=== PATIENT | female | born 1940 | race Caucasian/White ===

== ENCOUNTER 2016-10-31 07:16 | Emergency (ER) | payer MEDICARE ==
--- NOTE | 2016-10-31 07:57 | Emergency Department Report ---
Chief Complaint: Eye Problems Stated Complaint: LEFT EYE PAIN Time Seen by Provider: 10/31/16 07:45 - HPI History of Present Illness: Patient here complaining the left eye pain that she has had in the past. She has a history of high blood pressure and she said pain is 4-10 to her left eye and feeling like it's moving around. Denies any discharge or drainage. Denies any trauma to the left eye. She denies any headache but reports that her vision is blurred a time. She says she uses [id number] eyedrops which she is use in the past and it worked but it didn't work for her this time. Patient primary care physician is Dr. Malachi Pate. Patient blood pressure is also elevated. She says she is taking blood pressure medication. Denies any shortness of breath or chest pain. - ROS Review of Systems: All systems are negative unless stated in HPI above. - Exam Vital Signs: Vital Signs 10/31/16 07:21 Temperature 97.8 F Pulse Rate 87 Respiratory 16 Rate Blood Pressure 167/109 O2 Sat by Pulse 100 Oximetry Physical Exam: Gen.: This is 75-year-old female well-nourished well-developed in no acute distress Eyes: Bilateral pupils equal and reactive to light, bilateral EOM intact. Normal accommodation. Mini neurological exam: No facial drooping, speech is clear, GCS of 15. No motor or sensory deficit noted. MSE screening note: Focused history and physical exam performed. Due to findings the following was ordered: ED Medical Decision Making - Medical Decision Making MDM: Patient screened by provider and attending physician to see patient. ED Disposition for MSE Condition: Stable
[2016-10-31] MEDS ORDERED: FUL-GLO OP ONE (08:02)
[2016-10-31] MEDS ORDERED: TETRACAINE 0.5% OU ONE (08:02)
--- NOTE | 2016-10-31 08:33 | Emergency Department Report ---
HPI - General Chief Complaint: Eye Problems Time Seen by Provider: 10/31/16 07:49 - HPI HPI: This is a 75-year-old female presents to the emergency department with complaint of a six-week history of intermittent left eye discomfort, as if something is stuck in it but moving to different areas of that eye. Over this time she says that there has been some intermittent blurry vision or decreased vision. She does not wear glasses or contacts. She has a past medical history of hypertension and COPD. She used to see Dr. Garcia but says that he no longer takes her insurance and therefore she does not have a primary care physician and has not seen any physician, including an optics engineer, for these complaints. She has been using some [id number] eyedrops without any relief. ED Past Medical Hx - Past Medical History Previous Medical History?: Yes Hx Hypertension: Yes Additional medical history: cholesterol - Surgical History Past Surgical History?: No - Social History Smoking Status: Current Every Day Smoker Substance Use Type: None - Medications Home Medications: Home Medications Medication Instructions Recorded Confirmed Last Taken Type Tobramycin 0.3% [Tobrex] 1 drop OS Q8HR #1 bottle 10/31/16 Unknown Rx ED Review of Systems ROS: Stated complaint: LEFT EYE PAIN Other details as noted in HPI Comment: All other systems reviewed and negative Constitutional: denies: chills, fever Eyes: eye pain, vision change. denies: eye discharge ENT: denies: ear pain, throat pain Respiratory: denies: cough, shortness of breath, wheezing Cardiovascular: denies: chest pain, palpitations Gastrointestinal: denies: abdominal pain, nausea, diarrhea Genitourinary: denies: urgency, dysuria, discharge Musculoskeletal: denies: back pain, joint swelling, arthralgia Skin: denies: rash, lesions Neurological: denies: headache, weakness, paresthesias Physical Exam - Physical Exam Vital Signs: Vital Signs 10/31/16 07:21 Temperature 97.8 F Pulse Rate 87 Respiratory 16 Rate Blood Pressure 167/109 O2 Sat by Pulse 100 Oximetry Physical Exam: GENERAL: The patient is well-developed well-nourished. HENT: Normocephalic. Atraumatic. Patient has moist mucous membranes. EYES: Extraocular motions are intact. Pupils equal reactive to light bilaterally. There is mild left conjunctival injection. No obvious discharge. There was no fluorescein uptake seen on staining. No nystagmus. Left eye pressure was an average of 12. Visual acuity unable to be obtained secondary to the patient not having glasses. NECK: Supple. Trachea is midline. CHEST/LUNGS: Clear to auscultation. There is no respiratory distress noted. HEART/CARDIOVASCULAR: Regular. There is no tachycardia. There is no gallop rub or murmur. ABDOMEN: Abdomen is soft, nontender. Patient has normal bowel sounds. There is no abdominal distention. SKIN: Skin is warm and dry. NEURO: The patient is awake, alert, and oriented. The patient is cooperative. The patient has no focal neurologic deficits. The patient has normal speech and gait. MUSCULOSKELETAL: There is no tenderness or deformity. There is no limitation range of motion. There is no evidence of acute injury. ED Course Vital Signs 10/31/16 07:21 Temperature 97.8 F Pulse Rate 87 Respiratory 16 Rate Blood Pressure 167/109 O2 Sat by Pulse 100 Oximetry ED Medical Decision Making - Medical Decision Making 75-year-old presents with a 6 week history of left eye pain and occasionally some spots or blurry vision. Unable to check visual acuity secondary to the fact that she did not bring her glasses but it was the same with both eyes on her attempt. No fluorescein uptake. Pressure in the left eye was an average of 12. No obvious signs of infection but the patient will be placed on Tobrex. She'll be given referrals for ophthalmology seen in the next few days. She had elevated blood pressure but has yet to take her blood pressure medication today. - Differential Diagnosis conjunctivitis, corneal abrasion, glaucoma Critical Care Time: No Critical care attestation.: If time is entered above; I have spent that time in minutes in the direct care of this critically ill patient, excluding procedure time. ED Disposition Clinical Impression: Left eye pain Hypertension Qualifiers: Hypertension type: essential hypertension Qualified Code(s): I10 - Essential ( primary) hypertension Disposition: DC-01 TO HOME OR SELFCARE Is pt being admited?: No Condition: Stable Instructions: Hypertension (ED), Eye Pain (ED) Additional Instructions: Please follow up with an optics engineer in the next few days. Return to the emergency Department with any worsening of your symptoms or any acute distress. Please take your blood pressure medication. Try to stay away from foods that are high in salt and caffeinated products. Keep a blood pressure log. Prescriptions: Tobramycin 0.3% [Tobrex] 1 drop OS Q8HR #1 bottle Referrals: PRIMARY CARE, [Primary Care Provider] - 3-5 Days BÁRBARA MCNEIL MD [Staff Physician] - 3-5 Days SCOTT GOODWIN MD [Staff Physician] - 3-5 Days Time of Disposition: 09:57
[2016-10-31 09:24] VITALS: BP 178/91
== END 2016-10-31 10:08 | disposition home or self-care (01) ==
LOC: ED 07:16
DX: H57.12 Ocular pain, left eye (principal); I10 Essential (primary) hypertension; F17.200 Nicotine dependence, unspecified, uncomplicated
CPT/HCPCS: 99282

== ENCOUNTER 2018-09-02 17:49 | Emergency (ER) | payer MEDICARE ==
--- NOTE | 2018-09-02 18:07 | Event Note ---
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 This initial assessment/diagnostic orders/clinical plan/treatment(s) is/are subject to change based on patients health status, clinical progression and re- assessment by fellow clinical providers in the ED. Further treatment and workup at subsequent clinical providers discretion. Patient/guardian urged not to elope from the ED as their condition may be serious if not clinically assessed and managed. Initial orders include:
[2018-09-02 19:01] LABS: Basophils % (Auto) 0.8 % (0.0-1.8); Eosinophils # (Auto) 0.1 K/mm3 (0.0-0.4); Eosinophils % (Auto) 1.1 % (0.0-4.3); Hematocrit 40.8 % (30.3-42.9); Hemoglobin 14.1 gm/dl (10.1-14.3); Lymphocytes # (Auto) 2.3 K/mm3 (1.2-5.4); Lymphocytes % (Auto) 41.2 % (13.4-35.0); Mean Corpuscular HGB Conc 35 % (30-34); Mean Corpuscular Volume 98 fl (79-97); Monocytes # (Auto) 0.5 K/mm3 (0.0-0.8); Monocytes % (Auto) 8.6 % (0.0-7.3); Platelet Count 250 K/mm3 (140-440); Red Blood Count 4.18 M/mm3 (3.65-5.03); Red Cell Distribution Width 13.7 % (13.2-15.2)
[2018-09-02 19:25] LABS: Alanine Aminotransferase 7 units/L (7-56); Albumin 4.2 g/dL (3.9-5); BUN/Creatinine Ratio 12; Blood Urea Nitrogen 6 mg/dL (7-17); Calcium 9.2 mg/dL (8.4-10.2); Hemolysis Index 6
[2018-09-02 19:43] LABS: Bilirubin,Urine NEG (Negative); Blood,Urine SM (Negative); Color,Urine Yellow (Yellow); Mucus,Urine FEW /HPF; Protein,Urine <15 mg/dL mg/dL (Negative); Urobilinogen,Urine < 2.0 mg/dL (<2.0)
--- NOTE | 2018-09-02 20:00 | Emergency Department Report ---
ED General Adult HPI - General Chief complaint: Weakness Stated complaint: BLURRY VISION/WEAK Time Seen by Provider: 09/02/18 19:48 Source: patient, family Mode of arrival: Wheelchair Limitations: No Limitations - History of Present Illness Initial comments: Patient presents to the emergency department with a chief complaint of weakness, blurry vision, and dizziness that started earlier today. Patient also complains of not been up walking a straight line as well. Patient states that she has not taken blood pressure medications in over 3 years. Currently all symptoms have resolved. On arrival BP is approximately 180/108. Patient denies chest pain, abdominal pain, or headache -: Sudden Severity scale (0 -10): 0 Consistency: now resolved Improves with: none Worsens with: none Associated Symptoms: denies other symptoms Treatments Prior to Arrival: none - Related Data Previous Rx's Medication Instructions Recorded Last Taken Type Tobramycin 0.3% [Tobrex] 1 drop OS Q8HR #1 bottle 10/31/16 Unknown Rx Lisinopril [Zestril TAB] 10 mg PO QDAY #30 tablet 09/02/18 Unknown Rx Allergies Allergy/AdvReac Type Severity Reaction Status Date / Time acetaminophen [From Lortab] AdvReac Swelling Verified 09/02/18 18:03 hydrocodone bitartrate AdvReac Swelling Verified 09/02/18 18:03 [From Lortab] ED Review of Systems ROS: Stated complaint: BLURRY VISION/WEAK Other details as noted in HPI Comment: All other systems reviewed and negative Constitutional: denies: chills, fever Eyes: denies: eye pain, eye discharge, vision change ENT: denies: ear pain, throat pain Respiratory: denies: cough, shortness of breath, wheezing Cardiovascular: denies: chest pain, palpitations Endocrine: no symptoms reported Gastrointestinal: denies: abdominal pain, nausea, diarrhea Genitourinary: denies: urgency, dysuria, discharge Musculoskeletal: denies: back pain, joint swelling, arthralgia Skin: denies: rash, lesions Neurological: denies: headache, weakness, paresthesias Psychiatric: denies: anxiety, depression Hematological/Lymphatic: denies: easy bleeding, easy bruising ED Past Medical Hx - Past Medical History Hx Hypertension: Yes Additional medical history: cholesterol - Social History Smoking Status: Current Every Day Smoker Substance Use Type: None - Medications Home Medications: Home Medications Medication Instructions Recorded Confirmed Last Taken Type Tobramycin 0.3% [Tobrex] 1 drop OS Q8HR #1 bottle 10/31/16 Unknown Rx Lisinopril [Zestril TAB] 10 mg PO QDAY #30 tablet 09/02/18 Unknown Rx ED Physical Exam - General Limitations: No Limitations General appearance: alert, in no apparent distress - Head Head exam: Present: atraumatic, normocephalic - Eye Eye exam: Present: normal appearance, PERRL, EOMI - ENT ENT exam: Present: mucous membranes moist - Neck Neck exam: Present: normal inspection - Respiratory Respiratory exam: Present: normal lung sounds bilaterally. Absent: respiratory distress - Cardiovascular Cardiovascular Exam: Present: regular rate, normal rhythm. Absent: systolic murmur, diastolic murmur, rubs, gallop - GI/Abdominal GI/Abdominal exam: Present: soft, normal bowel sounds. Absent: distended, tenderness - Extremities Exam Extremities exam: Present: normal inspection - Back Exam Back exam: Present: normal inspection - Neurological Exam Neurological exam: Present: alert, oriented X3, CN II-XII intact. Absent: motor sensory deficit - Psychiatric Psychiatric exam: Present: normal affect, normal mood - Skin Skin exam: Present: warm, dry, intact, normal color. Absent: rash ED Course Vital Signs 09/02/18 09/02/18 09/02/18 18:01 20:16 21:33 Temperature 97.8 F 97.8 F Pulse Rate 92 H 78 85 Respiratory 16 20 Rate Blood Pressure 180/108 180/98 Blood Pressure 167/90 [Left] O2 Sat by Pulse 94 95 Oximetry ED Medical Decision Making - Lab Data Result diagrams: 09/02/18 18:08 09/02/18 18:08 Lab Results 09/02/18 09/02/18 09/02/18 Range/Units 18:08 18:08 19:14 WBC 5.7 (4.5-11.0) K/mm3 RBC 4.18 (3.65-5.03) M/mm3 Hgb 14.1 (10.1-14.3) gm/dl Hct 40.8 (30.3-42.9) % MCV 98 H (79-97) fl MCH 34 H (28-32) pg MCHC 35 H (30-34) % RDW 13.7 (13.2-15.2) % Plt Count 250 (140-440) K/mm3 Lymph % (Auto) 41.2 H (13.4-35.0) % [place] % (Auto) 8.6 H (0.0-7.3) % Eos % (Auto) 1.1 (0.0-4.3) % Baso % (Auto) 0.8 (0.0-1.8) % Lymph # 2.3 (1.2-5.4) K/mm3 [place] # 0.5 (0.0-0.8) K/mm3 Eos # 0.1 (0.0-0.4) K/mm3 Baso # 0.0 (0.0-0.1) K/mm3 Seg Neutrophils % 48.3 (40.0-70.0) % Seg Neutrophils # 2.8 (1.8-7.7) K/mm3 PT (12.2-14.9) Sec. INR (0.87-1.13) APTT (24.2-36.6) Sec. Sodium 138 (137-145) mmol/L Potassium 3.5 L (3.6-5.0) mmol/L Chloride 103.7 (98-107) mmol/L Carbon Dioxide 22 (22-30) mmol/L Anion Gap 16 mmol/L BUN 6 L (7-17) mg/dL Creatinine 0.5 L (0.7-1.2) mg/dL Estimated GFR > 60 ml/min BUN/Creatinine Ratio 12 % Glucose 88 (65-100) mg/dL Calcium 9.2 (8.4-10.2) mg/dL Total Bilirubin 0.50 (0.1-1.2) mg/dL AST 14 (5-40) units/L ALT 7 (7-56) units/L Alkaline Phosphatase 81 (35-129) units/L Troponin T (0.00-0.029) ng/mL Total Protein 6.9 (6.3-8.2) g/dL Albumin 4.2 (3.9-5) g/dL Albumin/Globulin Ratio 1.6 % Urine Color Yellow (Yellow) Urine Turbidity Clear (Clear) Urine pH 7.0 (5.0-7.0) Ur Specific [place] 1.009 (1.003-1.030) Urine Protein <15 mg/dl (Negative) mg/dL Urine Glucose (UA) Neg (Negative) mg/dL Urine Ketones Neg (Negative) mg/dL Urine Blood Sm (Negative) Urine Nitrite Neg (Negative) Urine Bilirubin Neg (Negative) Urine Urobilinogen < 2.0 (<2.0) mg/dL Ur Leukocyte Esterase Neg (Negative) Urine WBC (Auto) 1.0 (0.0-6.0) /HPF Urine RBC (Auto) 1.0 (0.0-6.0) /HPF Urine Mucus Few /HPF 09/02/18 09/02/18 Range/Units 19:52 19:52 WBC (4.5-11.0) K/mm3 RBC (3.65-5.03) M/mm3 Hgb (10.1-14.3) gm/dl Hct (30.3-42.9) % MCV (79-97) fl MCH (28-32) pg MCHC (30-34) % RDW (13.2-15.2) % Plt Count (140-440) K/mm3 Lymph % (Auto) (13.4-35.0) % [place] % (Auto) (0.0-7.3) % Eos % (Auto) (0.0-4.3) % Baso % (Auto) (0.0-1.8) % Lymph # (1.2-5.4) K/mm3 [place] # (0.0-0.8) K/mm3 Eos # (0.0-0.4) K/mm3 Baso # (0.0-0.1) K/mm3 Seg Neutrophils % (40.0-70.0) % Seg Neutrophils # (1.8-7.7) K/mm3 PT 13.4 (12.2-14.9) Sec. INR 1.05 (0.87-1.13) APTT 24.5 (24.2-36.6) Sec. Sodium (137-145) mmol/L Potassium (3.6-5.0) mmol/L Chloride (98-107) mmol/L Carbon Dioxide (22-30) mmol/L Anion Gap mmol/L BUN (7-17) mg/dL Creatinine (0.7-1.2) mg/dL Estimated GFR ml/min BUN/Creatinine Ratio % Glucose (65-100) mg/dL Calcium (8.4-10.2) mg/dL Total Bilirubin (0.1-1.2) mg/dL AST (5-40) units/L ALT (7-56) units/L Alkaline Phosphatase (35-129) units/L Troponin T < 0.010 (0.00-0.029) ng/mL Total Protein (6.3-8.2) g/dL Albumin (3.9-5) g/dL Albumin/Globulin Ratio % Urine Color (Yellow) Urine Turbidity (Clear) Urine pH (5.0-7.0) Ur Specific [place] (1.003-1.030) Urine Protein (Negative) mg/dL Urine Glucose (UA) (Negative) mg/dL Urine Ketones (Negative) mg/dL Urine Blood (Negative) Urine Nitrite (Negative) Urine Bilirubin (Negative) Urine Urobilinogen (<2.0) mg/dL Ur Leukocyte Esterase (Negative) Urine WBC (Auto) (0.0-6.0) /HPF Urine RBC (Auto) (0.0-6.0) /HPF Urine Mucus /HPF - EKG Data -: EKG Interpreted by Ga EKG shows normal: sinus rhythm Rate: normal - Radiology Data Radiology results: report reviewed - Medical Decision Making Discussed results with the patient Patient offered admission and politely declined stating her symptoms are likely due to hypertension Critical care attestation.: If time is entered above; I have spent that time in minutes in the direct care of this critically ill patient, excluding procedure time. ED Disposition Clinical Impression: Hypertension, Dizziness, nonspecific Disposition: DC-01 TO HOME OR SELFCARE Is pt being admited?: No Does the pt Need Aspirin: No Condition: Stable Instructions: Hypertension (ED), Dizziness (ED) Additional Instructions: return if worse Prescriptions: Lisinopril [Zestril TAB] 10 mg PO QDAY #30 tablet Referrals: PRIMARY CARE, [Primary Care Provider] - 3-5 Days [facility] [Provider Group] - 3-5 Days [facility] [Provider Group] - 3-5 Days [facility] [Outside] - 3-5 Days Time of Disposition: 21:52 - Assessment Assessment Interval: Baseline - Level of Consciousness 1a. Level of Consciousness: alert/keenly responsive - LOC Questions 1b. LOC Questions: answers both correctly - LOC Command 1c. LOC Commands: performs tasks correctly - Best Gaze 2. Best Gaze: normal - Visual 3. Visual: no visual loss - Facial Palsy 4. Facial Palsy: normal symmetrical movement - Motor Arm 5a. Motor Arm Left: no drift 5b. Motor Arm Right: no drift - Motor Leg 6a. Motor Leg Left: no drift 6b. Motor Leg Right: no drift - Limb Ataxia 7. Limb Ataxia: absent - Sensory 8. Sensory: normal - Best Language 9. Best Language: no aphasia - Dysarthria 10. Dysarthria: normal - Extinction and Inattention 11. Extinction/Inattention: no abnormality - Scoring Total Score: 0 Stroke Severity: No Stroke Symptoms
[2018-09-02 20:27] LABS: INR 1.05 (0.87-1.13)
[2018-09-02 20:28] LABS: Partial Thromboplastin Time 24.5 Sec. (24.2-36.6)
--- NOTE | 2018-09-02 20:54 | Cat Scan Report ---
CT head/brain wo con INDICATION: MAIN: DIZZINESS, HTN.. TECHNIQUE: Routine CT head without contrast. Sagittal and coronal reformatted images were obtained. A ll CT scans at this location are performed using CT dose reduction for ALARA by means of automated ex posure control. COMPARISON: None. FINDINGS: BRAIN / INTRACRANIAL CONTENTS: No acute hemorrhage, mass effect, midline shift, hydrocephalus, or acu te, large territorial infarct. Generalized cerebral atrophy is seen to a moderate degree. Hippocampi are normal. Cerebellar hemispheres are normal. No significant white matter abnormality. Bilateral parietal thinning is seen. Prominent scalp seen on the right side adjacent parietal thinnin g. CRANIOCERVICAL JUNCTION: No significant abnormality. ORBITS: No significant abnormality of visualized orbits. SINUSES / MASTOIDS: No significant abnormality of the visualized paranasal sinuses or mastoid air alissa ls. Soft tissue thickening is seen in the superior meati bilaterally. ADDITIONAL FINDINGS: None. IMPRESSION: I do not see an acute parenchymal lesion in the brain. Signer Name: Patrice Nagy MD Signed: 09/02/2018 8:50 PM Workstation Name: [id number]
[2018-09-02] MEDS ORDERED: NORVASC PO ONE (21:11)
[2018-09-02 23:08] VITALS: BP 167/82
== END 2018-09-02 23:08 | disposition home or self-care (01) ==
LOC: ED 17:49
DX: R42 Dizziness and giddiness (principal); I10 Essential (primary) hypertension; F17.200 Nicotine dependence, unspecified, uncomplicated; Z79.899 Other long term (current) drug therapy; Z88.8 Allergy status to other drugs, medicaments and biological substances
CPT/HCPCS: 36415; 70450; 80053; 81001; 84484; 85025; 85610; 85730; 93005; 93010; 99284

== ENCOUNTER 2018-09-04 12:39 | Observation (INO) | payer MEDICARE ==
[2018-09-04] MEDS ORDERED: NACL 0.9% 250ML 250 ML IV ONE (14:20)
[2018-09-04] MEDS ORDERED: ANTIVERT PO ONE (14:20)
--- NOTE | 2018-09-04 14:22 | Emergency Department Report ---
ED General Adult HPI - General Chief complaint: Dizziness Stated complaint: FAINT FEELING Time Seen by Provider: 09/04/18 14:02 Source: patient, family, RN notes reviewed, old records reviewed Mode of arrival: Stretcher Limitations: Other (patient deaf and heart of hearing in the left ear) - History of Present Illness Initial comments: This is a 77-year-old female. The patient is not known to this provider previously. The patient reports a history of being deaf in the left ear, and also describes a history of COPD. She is not sure who her primary care doctor is. She may also have a history of hypertension. Patient presents today with a recurrent complaint of feeling dizzy, and intermittently off balance. She was seen in this hospital a few days ago for similar symptoms. She had an appropriate initial ER workup, admission was recommended, which the patient subsequently declined. The patient presents today, with a recurrent complaint o f the same. It is now resolved. The patient denies headache, neck pain, chest pain, abdominal pain and shortness of breath. She denies tinnitus. 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 She denies physical pain otherwise. She denies DVT, pulmonary embolism risk factors. She is not sure if she has started any new medications, with the exception of the medications which were prescribed for her on her previous visit. -: Sudden Consistency: intermittent Improves with: none Worsens with: none Associated Symptoms: denies other symptoms - Related Data Previous Rx's Medication Instructions Recorded Last Taken Type Aspirin [Aspirin BABY CHEW TAB] 81 mg PO QDAY #30 tab.chew 09/02/18 09/04/18 Rx Lisinopril [Zestril TAB] 10 mg PO QDAY #30 tablet 09/02/18 09/04/18 Rx Allergies Allergy/AdvReac Type Severity Reaction Status Date / Time acetaminophen [From Lortab] AdvReac Swelling Verified 09/02/18 18:03 hydrocodone bitartrate AdvReac Swelling Verified 09/02/18 18:03 [From Lortab] ED Review of Systems ROS: Stated complaint: FAINT FEELING Other details as noted in HPI Constitutional: denies: fever Eyes: denies: eye discharge ENT: hearing loss (chronic hearing loss). denies: ear pain Respiratory: denies: shortness of breath Cardiovascular: denies: chest pain, syncope Gastrointestinal: denies: abdominal pain Genitourinary: denies: dysuria Skin: denies: lesions Neurological: abnormal gait, vertigo. denies: weakness Hematological/Lymphatic: denies: easy bleeding ED Past Medical Hx - Past Medical History Previous Medical History?: Yes Hx Hypertension: Yes Hx COPD: Yes Additional medical history: cholesterol - Surgical History Past Surgical History?: No - Social History Smoking Status: Current Every Day Smoker Substance Use Type: None - Medications Home Medications: Home Medications Medication Instructions Recorded Confirmed Last Taken Type Aspirin [Aspirin BABY CHEW TAB] 81 mg PO QDAY #30 tab.chew 09/02/18 09/04/18 09/04/18 Rx Lisinopril [Zestril TAB] 10 mg PO QDAY #30 tablet 09/02/18 09/04/18 09/04/18 Rx ED Physical Exam - General Limitations: No Limitations General appearance: alert, in no apparent distress - Head Head exam: Present: atraumatic, normocephalic - Eye Eye exam: Present: normal appearance, PERRL, EOMI, other (visual acuity intact to finger counting, color perception, reading at a close distance). Absent: nystagmus - ENT ENT exam: Present: normal exam, normal orophraynx, mucous membranes moist, TM's normal bilaterally, normal external ear exam - Neck Neck exam: Present: normal inspection, full ROM. Absent: tenderness, meningismus - Respiratory Respiratory exam: Present: normal lung sounds bilaterally. Absent: respiratory distress - Cardiovascular Cardiovascular Exam: Present: regular rate, normal rhythm, normal heart sounds. Absent: bradycardia, tachycardia, irregular rhythm, systolic murmur, diastolic murmur, rubs, gallop - GI/Abdominal GI/Abdominal exam: Present: soft. Absent: distended, tenderness, guarding, rebound, rigid, pulsatile mass - Extremities Exam Extremities exam: Present: normal inspection, full ROM, pedal edema, other (2+ pulses noted in the bilateral upper, lower extremities. Compartments soft. No long bony tenderness. The pelvis is stable.). Absent: calf tenderness - Back Exam Back exam: Present: normal inspection, full ROM. Absent: tenderness, CVA tenderness (R), CVA tenderness (L), paraspinal tenderness, vertebral tenderness - Neurological Exam Neurological exam: Present: alert, normal gait, other (Extraocular movements intact. Tongue midline. No facial droop. Facial sensation intact to light touch in the V1, V2, V3 distribution bilaterally. 5 and 5 strength in 4 extremities.. Sensation is intact to light touch in 4 extremities.). Absent: motor sensory deficit - Psychiatric Psychiatric exam: Present: normal affect, normal mood - Skin Skin exam: Present: warm, dry, intact, normal color. Absent: rash ED Course Vital Signs 09/04/18 09/04/18 09/04/18 13:30 13:34 13:45 Temperature 97.8 F Pulse Rate 73 Respiratory 14 11 L 13 Rate Blood Pressure 143/66 134/59 Blood Pressure [Left] O2 Sat by Pulse 98 97 Oximetry 09/04/18 09/04/18 09/04/18 14:00 14:15 14:30 Temperature Pulse Rate Respiratory 15 14 11 L Rate Blood Pressure 134/59 138/76 138/76 Blood Pressure [Left] O2 Sat by Pulse 96 97 Oximetry 09/04/18 09/04/18 09/04/18 14:58 15:00 15:13 Temperature Pulse Rate 74 Respiratory 11 L 17 21 Rate Blood Pressure 138/74 138/74 Blood Pressure 136/67 [Left] O2 Sat by Pulse 97 97 97 Oximetry 09/04/18 09/04/18 09/04/18 15:15 15:31 15:45 Temperature Pulse Rate Respiratory 17 16 18 Rate Blood Pressure 142/77 138/79 Blood Pressure [Left] O2 Sat by Pulse 97 96 96 Oximetry 09/04/18 09/04/18 09/04/18 16:00 16:15 16:31 Temperature Pulse Rate 85 88 Respiratory 18 17 15 Rate Blood Pressure 124/79 Blood Pressure [Left] O2 Sat by Pulse 97 96 96 Oximetry - Consultations Consultation #1: 09/04/18 17:24 Patient seen and examined by neurology, Dr. Rodriguez, who agrees with plan for admission, and workup/evaluation, agrees that patient is not a TPA candidate, and agrees that no emergent angiographic imaging is indicated at this point in time. 09/04/18 17:26 ED Medical Decision Making - Lab Data Result diagrams: 09/04/18 14:28 09/04/18 14:28 Vital Signs 09/04/18 09/04/18 09/04/18 13:30 13:34 13:45 Temperature 97.8 F Pulse Rate 73 Respiratory 14 11 L 13 Rate Blood Pressure 143/66 134/59 Blood Pressure [Left] O2 Sat by Pulse 98 97 Oximetry 09/04/18 09/04/18 09/04/18 14:00 14:15 14:30 Temperature Pulse Rate Respiratory 15 14 11 L Rate Blood Pressure 134/59 138/76 138/76 Blood Pressure [Left] O2 Sat by Pulse 96 97 Oximetry 09/04/18 09/04/18 09/04/18 14:58 15:00 15:13 Temperature Pulse Rate 74 Respiratory 11 L 17 21 Rate Blood Pressure 138/74 138/74 Blood Pressure 136/67 [Left] O2 Sat by Pulse 97 97 97 Oximetry 09/04/18 09/04/18 09/04/18 15:15 15:31 15:45 Temperature Pulse Rate Respiratory 17 16 18 Rate Blood Pressure 142/77 138/79 Blood Pressure [Left] O2 Sat by Pulse 97 96 96 Oximetry 09/04/18 09/04/18 09/04/18 16:00 16:15 16:31 Temperature Pulse Rate 85 88 Respiratory 18 17 15 Rate Blood Pressure 124/79 Blood Pressure [Left] O2 Sat by Pulse 97 96 96 Oximetry Lab Results 09/04/18 09/04/18 09/04/18 Range/Units 14:28 14:28 14:28 WBC 7.5 (4.5-11.0) K/mm3 RBC 4.14 (3.65-5.03) M/mm3 Hgb 14.2 (10.1-14.3) gm/dl Hct 40.9 (30.3-42.9) % MCV 99 H (79-97) fl MCH 34 H (28-32) pg MCHC 35 H (30-34) % RDW 13.8 (13.2-15.2) % Plt Count 254 (140-440) K/mm3 Lymph % (Auto) 15.0 (13.4-35.0) % [place] % (Auto) 5.0 (0.0-7.3) % Eos % (Auto) 0.2 (0.0-4.3) % Baso % (Auto) 0.6 (0.0-1.8) % Lymph # 1.1 L (1.2-5.4) K/mm3 [place] # 0.4 (0.0-0.8) K/mm3 Eos # 0.0 (0.0-0.4) K/mm3 Baso # 0.0 (0.0-0.1) K/mm3 Seg Neutrophils % 79.2 H (40.0-70.0) % Seg Neutrophils # 5.9 (1.8-7.7) K/mm3 PT 13.1 (12.2-14.9) Sec. INR 1.02 (0.87-1.13) APTT 26.8 (24.2-36.6) Sec. Thrombin Time 16.2 (15.1-19.6) Sec. Sodium (137-145) mmol/L Potassium (3.6-5.0) mmol/L Chloride (98-107) mmol/L Carbon Dioxide (22-30) mmol/L Anion Gap mmol/L BUN (7-17) mg/dL Creatinine (0.7-1.2) mg/dL Estimated GFR ml/min BUN/Creatinine Ratio % Glucose (65-100) mg/dL Calcium (8.4-10.2) mg/dL Magnesium (1.7-2.3) mg/dL Total Bilirubin (0.1-1.2) mg/dL AST (5-40) units/L ALT (7-56) units/L Alkaline Phosphatase (35-129) units/L Total Creatine Kinase (30-135) units/L CK-MB (CK-2) (0.0-4.0) ng/mL CK-MB (CK-2) Rel Index (0-4) Troponin T (0.00-0.029) ng/mL Total Protein (6.3-8.2) g/dL Albumin (3.9-5) g/dL Albumin/Globulin Ratio % TSH 2.100 (0.270-4.200) mlU/mL 09/04/18 Range/Units 14:28 WBC (4.5-11.0) K/mm3 RBC (3.65-5.03) M/mm3 Hgb (10.1-14.3) gm/dl Hct (30.3-42.9) % MCV (79-97) fl MCH (28-32) pg MCHC (30-34) % RDW (13.2-15.2) % Plt Count (140-440) K/mm3 Lymph % (Auto) (13.4-35.0) % [place] % (Auto) (0.0-7.3) % Eos % (Auto) (0.0-4.3) % Baso % (Auto) (0.0-1.8) % Lymph # (1.2-5.4) K/mm3 [place] # (0.0-0.8) K/mm3 Eos # (0.0-0.4) K/mm3 Baso # (0.0-0.1) K/mm3 Seg Neutrophils % (40.0-70.0) % Seg Neutrophils # (1.8-7.7) K/mm3 PT (12.2-14.9) Sec. INR (0.87-1.13) APTT (24.2-36.6) Sec. Thrombin Time (15.1-19.6) Sec. Sodium 135 L (137-145) mmol/L Potassium 3.7 (3.6-5.0) mmol/L Chloride 101.4 (98-107) mmol/L Carbon Dioxide 23 (22-30) mmol/L Anion Gap 14 mmol/L BUN 8 (7-17) mg/dL Creatinine 0.5 L (0.7-1.2) mg/dL Estimated GFR > 60 ml/min BUN/Creatinine Ratio 16 % Glucose 102 H (65-100) mg/dL Calcium 9.1 (8.4-10.2) mg/dL Magnesium 2.10 (1.7-2.3) mg/dL Total Bilirubin 0.40 (0.1-1.2) mg/dL AST 14 (5-40) units/L ALT 8 (7-56) units/L Alkaline Phosphatase 81 (35-129) units/L Total Creatine Kinase 50 (30-135) units/L CK-MB (CK-2) 1.4 (0.0-4.0) ng/mL CK-MB (CK-2) Rel Index 2.8 (0-4) Troponin T < 0.010 (0.00-0.029) ng/mL Total Protein 7.1 (6.3-8.2) g/dL Albumin 4.2 (3.9-5) g/dL Albumin/Globulin Ratio 1.4 % TSH (0.270-4.200) mlU/mL - EKG Data -: EKG Interpreted by Mt EKG shows normal: sinus rhythm Rate: normal - EKG Data 09/04/18 17:02 EKG today demonstrates a sinus rhythm, 67 bpm, QTC prolonged, low voltage, borderline left ventricular hypertrophy, abnormal EKG, not consistent with ST elevation myocardial infarction, appears unchanged from prior EKG from August 2018. - Radiology Data Radiology results: pending, report reviewed, image reviewed Noncontrast CT scan of the brain today is negative for acute disease. Noncontrast CT scan of the brain from 09/02/2018 as negative for acute disease. - Medical Decision Making Differential diagnosis, including not limited to: Peripheral vertigo, central vertigo, deconditioning, dehydration, urinary tract infection, electrolyte d erangement, thyroid derangement Assessment and plan: 77-year-old female with a complaint of feeling dizzy and intermittently off balance without additional symptoms. She is afebrile with reassuring vital signs. She is not tachycardic and she is not hypoxic. She endorses no DVT or pulmonary embolus risk factors. Her screening laboratory studies are essentially unremarkable. Urinalysis is pending at this time. Noncontrast CT scan of the brain is negative for acute disease. Neurology consu lt has been requested. Patient has an NIH score of 0 at this time, therefore not a TPA candidate. Given her lack of neurologic deficits at the moment, she does not require emergent angiographic imaging, as her current exam does not corroborate or substantiate a potential large vessel occlusion. We will treat her empirically with aspirin, fluids and meclizine. Hospital physician, Dr. Ella Mijares to admit I discussed this with the patient and family, who verbalized understanding, and who are amenable to hospitalization. Critical care attestation.: If time is entered above; I have spent that time in minutes in the direct care of this critically ill patient, excluding procedure time. ED Disposition Clinical Impression: Dizziness, nonspecific, History of unsteady gait Disposition: -09 OP ADMIT IP TO THIS HOSP Is pt being admited?: Yes Does the pt Need Aspirin: Yes Condition: Stable Referrals: EWA SCHMITZ MD [Primary Care Provider] - 3-5 Days
[2018-09-04 14:46] LABS: Basophils % (Auto) 0.6 % (0.0-1.8); Eosinophils % (Auto) 0.2 % (0.0-4.3); Hematocrit 40.9 % (30.3-42.9); Hemoglobin 14.2 gm/dl (10.1-14.3); Lymphocytes # (Auto) 1.1 K/mm3 (1.2-5.4); Mean Corpuscular HGB Conc 35 % (30-34); Mean Corpuscular Volume 99 fl (79-97); Monocytes # (Auto) 0.4 K/mm3 (0.0-0.8); Platelet Count 254 K/mm3 (140-440); Red Blood Count 4.14 M/mm3 (3.65-5.03); Red Cell Distribution Width 13.8 % (13.2-15.2)
[2018-09-04 14:55] LABS: INR 1.02 (0.87-1.13)
[2018-09-04 14:56] LABS: Partial Thromboplastin Time 26.8 Sec. (24.2-36.6); Thrombin Time 16.2 Sec. (15.1-19.6)
[2018-09-04 15:05] LABS: Creatine Kinase MB 1.4 ng/mL (0.0-4.0)
[2018-09-04 15:06] LABS: Alanine Aminotransferase 8 units/L (7-56); Albumin 4.2 g/dL (3.9-5); BUN/Creatinine Ratio 16; Blood Urea Nitrogen 8 mg/dL (7-17); Calcium 9.1 mg/dL (8.4-10.2); Hemolysis Index 19
--- NOTE | 2018-09-04 16:47 | Cat Scan Report ---
CT head/brain wo con INDICATION / CLINICAL INFORMATION: 77 years Female; Stroke symptoms. 77-year-old female with dizziness TECHNIQUE: Routine CT head without contrast. All CT scans at this location are performed using CT dos e reduction for ALARA by means of automated exposure control. COMPARISON: None. FINDINGS: BRAIN / INTRACRANIAL CONTENTS: No acute hemorrhage, mass effect, midline shift, hydrocephalus, or acu te, large territorial infarct. cerebral and cerebellar atrophy. There are areas of decreased attenuation in the white matter of the cerebral hemispheres. These are n onspecific findings and may be related to microangiopathy (hypertension, diabetes, atherosclerosis), given the patient's age. It might be difficult to evaluate for small areas of ischemia without diffus ion imaging by MRI. CRANIOCERVICAL JUNCTION: No significant abnormality. ORBITS: No significant abnormality of visualized orbits. SINUSES / MASTOIDS: No significant abnormality of the visualized paranasal sinuses or mastoid air alissa ls. ADDITIONAL FINDINGS: Biparietal thinning of the calvarium noted-normal variant. Atherosclerotic disease is seen in the anterior and posterior circulation. IMPRESSION: 1. No focal mass, hemorrhage, hydrocephalus, or acute, large territorial infarct. Signer Name: Jamie Leong MD, III Signed: 09/04/2018 4:43 PM Workstation Name: [id number]
[2018-09-04] MEDS ORDERED: BABY ASPIRIN PO ONE (17:06)
[2018-09-04] MEDS ORDERED: NACL 0.9% 500 ML 500 ML IV ONE (17:07)
--- NOTE | 2018-09-04 21:17 | Consultation ---
History of Present Illness Consult date: 09/04/18 Chief complaint: dizziness, flushing History of present illness: [facility] Impression: r/o stroke vs medication effect Recommendations: no tpa due to LKN not an lvo aspirin now MRI brain to r/o stroke MRA H/N to r/o focal stenosis neurology consultation to follow inpatient d/w ED doc in detail Irena Rodriguez MD Metrics: 09/04/18 LKN 0900hrs (possibly Tuesday) door: 1421 ts called 1651 ts connected 1710 NIHSS 1710 CC: dizziness History of Present Illness: 77 yo female who states she is here due to feeling lightheaded and flushed after her medication dose this morning, started 30 min after taking her BP med; but she also notes she has unsteadiness of gait with walking that was maybe since Tuesday; she came in on Tuesday for eval as well and had head CT, her BP at that time was in the 180's; She is a bit of a poor historian; no focal findings on exam; but staff state that this fluctuates Diagnostic Testing: CT head negative Vital Signs: SBP 110 NIHSS = 1 for slurred speech; otherwise negative exam Medical Decision Making: - Extensive number of diagnosis or management options are considered above. - Extensive amount of complex data reviewed. - High risk of complication and/or morbidity or mortality are associated with differential diagnostic considerations above. - There may be uncertain outcome and increased probability of prolonged functional impairment or high probability of severe prolonged functional impairment associated with some of these differential diagnosis. Medical Data Reviewed: 1.Data reviewed include clinical labs, radiology, Medical Tests; 2.Tests results discussed w/performing or interpreting physician; 3.Obtaining/reviewing old medical records; 4.Obtaining case history from another source; 5.Independent review of image, tracing or specimen. Patient was informed the [facility] would [facility] of interactive audio and video telecommunicationsand consented to receiving care in this manner. Medications and Allergies Allergies Allergy/AdvReac Type Severity Reaction Status Date / Time acetaminophen [From Lortab] AdvReac Swelling Verified 09/02/18 18:03 hydrocodone bitartrate AdvReac Swelling Verified 09/02/18 18:03 [From Lortab] Home Medications Medication Instructions Recorded Confirmed Last Taken Type Aspirin [Aspirin BABY CHEW TAB] 81 mg PO QDAY #30 tab.chew 09/02/18 09/04/18 09/04/18 Rx Lisinopril [Zestril TAB] 10 mg PO QDAY #30 tablet 09/02/18 09/04/18 09/04/18 Rx Physical Examination - Vital Signs Vital Signs: Vital Signs Temp Pulse Resp BP Pulse Ox 97.8 F 73 11 L 143/66 98 09/04/18 13:30 09/04/18 13:30 09/04/18 13:30 09/04/18 13:30 09/04/18 13:30 Results - Laboratory Findings CBC and BMP: 09/04/18 14:28 09/04/18 14:28 Abnormal Lab Findings: Abnormal Labs 09/04/18 09/04/18 14:28 14:28 MCV 99 H MCH 34 H MCHC 35 H Lymph # 1.1 L Seg Neutrophils % 79.2 H Sodium 135 L Creatinine 0.5 L Glucose 102 H
--- NOTE | 2018-09-05 00:37 | History and Physical Report ---
History of Present Illness Date of examination: 09/04/18 Date of admission: 09/04/18 17:06 Chief complaint: Unsteady gait for 2 days. History of present illness: 77-year-old female with history of hypertension COPD and nicotine dependence comes in for unsteady gait for the last 48 hours. Patient was in emergency room couple days ago and was evaluated and discharged. Patient had adequate evaluation. Patient continued to be having unsteady gait. Also her blood pressure was elevated. No diplopia or nasal regurgitation of fluids. No focal weakness. No slurred speech. Only unsteady gait. Past Medical History Previous Medical History?: Yes Hypertension: Yes COPD: Yes Additional medical history: cholesterol Surgical History Past Surgical History?: No Social History and Smoking Status: Current Every Day Smoker Substance Use Type: None Family history HTN - Medications Home Medications: Home Medications Medication Instructions Recorded Confirmed Last Taken Type Aspirin [Aspirin BABY CHEW TAB] 81 mg PO QDAY #30 tab.chew 09/02/18 09/04/18 09/04/18 Rx Lisinopril [Zestril TAB] 10 mg PO QDAY #30 tablet 09/02/18 09/04/18 09/04/18 Rx Review of Systems ROS: Stated complaint: FAINT FEELING Other details as noted in HPI Constitutional: denies: fever Eyes: denies: eye discharge ENT: hearing loss (chronic hearing loss). denies: ear pain Respiratory: denies: shortness of breath Cardiovascular: denies: chest pain, syncope Gastrointestinal: denies: abdominal pain Genitourinary: denies: dysuria Skin: denies: lesions Neurological: abnormal gait, vertigo. denies: weakness Hematological/Lymphatic: denies: easy bleeding Medications and Allergies Allergies Allergy/AdvReac Type Severity Reaction Status Date / Time acetaminophen [From Lortab] AdvReac Swelling Verified 09/02/18 18:03 hydrocodone bitartrate AdvReac Swelling Verified 09/02/18 18:03 [From Lortab] Home Medications Medication Instructions Recorded Confirmed Last Taken Type Aspirin [Aspirin BABY CHEW TAB] 81 mg PO QDAY #30 tab.chew 09/02/18 09/04/18 09/04/18 Rx Lisinopril [Zestril TAB] 10 mg PO QDAY #30 tablet 09/02/18 09/04/18 09/04/18 Rx Exam - Constitutional Vitals: Temp Pulse Resp BP Pulse Ox 98.3 F 72 19 98/50 96 09/04/18 22:57 09/04/18 22:57 09/04/18 22:57 09/04/18 22:57 09/04/18 22:57 General appearance: Present: no acute distress, well-nourished - EENT Eyes: Present: PERRL ENT: hearing intact, clear oral mucosa - Neck Neck: Present: supple, normal ROM - Respiratory Respiratory effort: normal Respiratory: bilateral: CTA - Cardiovascular Heart rate: 78 Rhythm: regular Heart Sounds: Present: S1 & S2. Absent: rub, click - Extremities Extremities: no ischemia, pulses intact, pulses symmetrical, No edema Peripheral Pulses: within normal limits - Abdominal General gastrointestinal: Present: soft, non-tender, non-distended, normal bowel sounds Female genitourinary: Present: normal - Rectal Rectal Exam: deferred - Integumentary Integumentary: Present: clear, warm, dry - Musculoskeletal Musculoskeletal: gait normal, strength equal bilaterally - Psychiatric Psychiatric: appropriate mood/affect, intact judgment & insight - Neurologic Neurologic: CNII-XII intact, moves all extremities - Allied Health Allied health notes reviewed: nursing, case management Results - Labs CBC & Chem 7: 09/04/18 14:28 09/04/18 14:28 Labs: Laboratory Last Values WBC 7.5 K/mm3 (4.5-11.0) 09/04/18 14:28 RBC 4.14 M/mm3 (3.65-5.03) 09/04/18 14:28 Hgb 14.2 gm/dl (10.1-14.3) 09/04/18 14:28 Hct 40.9 % (30.3-42.9) 09/04/18 14:28 MCV 99 fl (79-97) H 09/04/18 14:28 MCH 34 pg (28-32) H 09/04/18 14:28 MCHC 35 % (30-34) H 09/04/18 14:28 RDW 13.8 % (13.2-15.2) 09/04/18 14:28 Plt Count 254 K/mm3 (140-440) 09/04/18 14:28 Lymph % (Auto) 15.0 % (13.4-35.0) 09/04/18 14:28 [place] % (Auto) 5.0 % (0.0-7.3) 09/04/18 14:28 Eos % (Auto) 0.2 % (0.0-4.3) 09/04/18 14:28 Baso % (Auto) 0.6 % (0.0-1.8) 09/04/18 14:28 Lymph # 1.1 K/mm3 (1.2-5.4) L 09/04/18 14:28 [place] # 0.4 K/mm3 (0.0-0.8) 09/04/18 14:28 Eos # 0.0 K/mm3 (0.0-0.4) 09/04/18 14:28 Baso # 0.0 K/mm3 (0.0-0.1) 09/04/18 14:28 Seg Neutrophils % 79.2 % (40.0-70.0) H 09/04/18 14:28 Seg Neutrophils # 5.9 K/mm3 (1.8-7.7) 09/04/18 14:28 PT 13.1 Sec. (12.2-14.9) 09/04/18 14:28 INR 1.02 (0.87-1.13) 09/04/18 14:28 APTT 26.8 Sec. (24.2-36.6) 09/04/18 14:28 16.2 Sec. (15.1-19.6) 09/04/18 14:28 Sodium 135 mmol/L (137-145) L 09/04/18 14:28 Potassium 3.7 mmol/L (3.6-5.0) 09/04/18 14:28 Chloride 101.4 mmol/L (98-107) 09/04/18 14:28 Carbon Dioxide 23 mmol/L (22-30) 09/04/18 14:28 14 mmol/L 09/04/18 14:28 BUN 8 mg/dL (7-17) 09/04/18 14:28 0.5 mg/dL (0.7-1.2) L 09/04/18 14:28 Estimated GFR > 60 ml/min 09/04/18 14:28 16 % 09/04/18 14:28 Glucose 102 mg/dL (65-100) H 09/04/18 14:28 Calcium 9.1 mg/dL (8.4-10.2) 09/04/18 14:28 Magnesium 2.10 mg/dL (1.7-2.3) 09/04/18 14:28 0.40 mg/dL (0.1-1.2) 09/04/18 14:28 AST 14 units/L (5-40) 09/04/18 14:28 ALT 8 units/L (7-56) 09/04/18 14:28 81 units/L (35-129) 09/04/18 14:28 50 units/L (30-135) 09/04/18 14:28 CK-MB (CK-2) 1.4 ng/mL (0.0-4.0) 09/04/18 14:28 CK-MB (CK-2) Rel Index 2.8 (0-4) 09/04/18 14:28 < 0.010 ng/mL (0.00-0.029) 09/04/18 14:28 7.1 g/dL (6.3-8.2) 09/04/18 14:28 4.2 g/dL (3.9-5) 09/04/18 14:28 1.4 % 09/04/18 14:28 TSH 2.100 mlU/mL (0.270-4.200) 09/04/18 14:28 - Imaging and Cardiology EKG: report reviewed (normal sinus rhythm, heart rate is 60 per minute no acute ST-T wave changes) CT Scan - head: report reviewed Imaging and Cardiology: Head CT IMPRESSION: 1. No focal mass, hemorrhage, hydrocephalus, or acute, large territorial infarct . Signer Name: Jamie Leong MD, III Assessment and Plan Advance Directives: Yes (full code) VTE prophylaxis?: Chemical Plan of care discussed with patient/family: Yes - Patient Problems (1) Ataxia Current Visit: Yes Status: Acute Plan to address problem: Rule out cerebrovascular accident Stroke workup Neurologic consult (2) Hypertension Current Visit: No Status: Acute Qualifiers: Hypertension type: essential hypertension Qualified Code(s): I10 - Essential (primary) hypertension Plan to address problem: Continue antihypertensives (3) COPD (chronic obstructive pulmonary disease) Current Visit: Yes Status: Acute Qualifiers: Emphysema type: unspecified Plan to address problem: Continue nebulizer treatments (4) Nicotine dependence Current Visit: Yes Status: Chronic Qualifiers: Nicotine product type: cigarettes Plan to address problem: Patient counseled about smoking cessation NicoDerm patch initiated (5) DVT prophylaxis Current Visit: Yes Status: Acute Plan to address problem: On Lovenox and GI prophylaxis
[2018-09-05] MEDS ORDERED: PERCOCET 5/325 PO PRN (00:41)
[2018-09-05] MEDS ORDERED: DILAUDID IV PRN (00:41)
[2018-09-05] MEDS ORDERED: ZOFRAN IV PRN (00:41)
[2018-09-05] MEDS ORDERED: TYLENOL PO PRN (00:41)
[2018-09-05] MEDS ORDERED: SODIUM CHLORIDE FLUSH SYRINGE 10 ML IV PRN (00:41)
[2018-09-05] MEDS ORDERED: SODIUM CHLORIDE FLUSH SYRINGE 10 ML INJ PRN (00:42)
[2018-09-05] MEDS ORDERED: NACL 0.9% 1000 ML 1,000 ML IV SCH (01:00)
[2018-09-05 01:24] LABS: Bacteria,Urine 1+ /HPF (Negative); Bilirubin,Urine NEG (Negative); Blood,Urine NEG (Negative); Color,Urine Yellow (Yellow); Mucus,Urine FEW /HPF; Protein,Urine <15 mg/dL mg/dL (Negative); RBC,Urine < 1.0 /HPF (0.0-6.0); Urobilinogen,Urine < 2.0 mg/dL (<2.0)
[2018-09-05 01:33] LABS: Amorphous Crystals,Urine 2+
[2018-09-05] MEDS: PEPCID IV SCH ×2 (01:49→09:17)
[2018-09-05] MEDS: DUONEB *Not for PRN Use IH SCH ×3 (03:37→14:43)
[2018-09-05 07:43] VITALS: BP 142/70
[2018-09-05] MEDS ORDERED: ZESTRIL PO SCH (10:00)
[2018-09-05] MEDS ORDERED: BABY ASPIRIN PO SCH (10:00)
[2018-09-05] MEDS ORDERED: HABITROL TD SCH (10:00)
[2018-09-05] MEDS ORDERED: SODIUM CHLORIDE FLUSH SYRINGE 10 ML IV SCH (10:00)
--- NOTE | 2018-09-05 10:13 | Vascular Lab Report ---
Duplex carotid sonography with spectral analysis Indication: stroke Mild carotid atherosclerotic changes are seen. In the right internal carotid artery no significant velocity elevations are seen to suggest a hemodyn amically-significant stenosis. Peak systolic velocity of the right ICA is 91 cm/s. In the left internal carotid artery no significant velocity elevations are seen to suggest a hemodyna mically-significant stenosis. Peak systolic velocity of the left ICA is 83 cm/s. Vertebral flow is antegrade bilaterally. Impression: No evidence of hemodynamically-significant stenosis by NASCET-type criteria Signer Name: Chidi Harrell MD Signed: 09/05/2018 10:09 AM Workstation Name: [id number]
--- NOTE | 2018-09-05 12:40 | Magnetic Resonance Report ---
MRI BRAIN 09/05/2018 INDICATION / CLINICAL INFORMATION: stroke. Dizziness TECHNIQUE: Multiplanar, multisequence MR images of the brain were obtained. COMPARISON: CT brain 09/04/2018 FINDINGS: BRAIN / INTRACRANIAL CONTENTS: Unenhanced MR images of the brain demonstrate no evidence of acute int racranial abnormality. Ventricles and sulci are slightly prominent in size, consistent with normal age-related atrophic terry ge. Mild chronic white matter T2 weighted hyperintensities are present in the periventricular white matte r, consistent with mild chronic small vessel ischemic change. There is no evidence of acute ischemic injury, hemorrhage, or mass. There are no abnormal extra-axial fluid collections. 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 CRANIOCERVICAL JUNCTION: No significant abnormality. VASCULAR FLOW-VOIDS: No significant abnormality. IMPRESSION: No acute abnormality. Chronic and age-related changes. Signer Name: Puma Morris MD Signed: 09/05/2018 12:35 PM Workstation Name: [id number]
--- NOTE | 2018-09-05 12:41 | Magnetic Resonance Report ---
MRA HEAD INDICATION / CLINICAL INFORMATION: stroke. Dizziness TECHNIQUE: Routine MRA of the head is performed. 3-D/MIP reformats postprocessed. COMPARISON: None available. FINDINGS: MRA HEAD: Intracranial internal carotid arteries: No significant abnormality. Anterior cerebral arteries: No significant abnormality. Middle cerebral arteries: No significant abnormality. Intracranial vertebral arteries: No significant abnormality. Basilar artery: No significant abnormality. Posterior cerebral arteries: No significant abnormality. IMPRESSION: No significant abnormality. Signer Name: Puma Morris MD Signed: 09/05/2018 12:36 PM Workstation Name: [id number]
--- NOTE | 2018-09-05 13:14 | Discharge Summary ---
Providers - Providers Date of Admission: 09/04/18 17:06 Date of discharge: 09/05/18 Attending physician: DONNY XIONG 09/04/18 Consult to Physician [CONS] Stat Comment: Consulting Provider: LAYLA KOEHLER Physician Instructions: Reason For Exam: suspected stroke 09/05/18 00:41 Consult to Physician [CONS] Routine Comment: Consulting Provider: DEL MOORE Physician Instructions: Reason For Exam: ataxia 09/05/18 00:42 Occupational Therapy Evaluate and Treat [CONS] Routine Comment: Reason For Exam: Neuro deficits Physical Therapy Evaluation and Treat [CONS] Routine Comment: Reason For Exam: Neuro deficits [facility] Condition: Good Pertinent studies: MRI unremarkable MRA unremarkable carotid Doppler no significant blockages. Head CT also unremarkable. Hospital course: Patient is 77-year-old that presented with chief complaint of dizziness. Patient history of COPD. Dizziness was consistent with elevated blood pressure of 180. Patient no longer had unsteady gait blood pressure was corrected. Patient hypertension was corrected patient also had nicotine dependence which we offer Nitropaste. Also COPD patient given nebulizers when necessary and lobule. Patient had negative workup for dizziness and stroke workup negative MRA negative MRI and negative CT scan and carotid Doppler stable to be discharged. Disposition: DC- TO HOME OR SELFCARE - Discharge Diagnoses (1) Ataxia Status: Acute (2) COPD (chronic obstructive pulmonary disease) Status: Acute Qualifiers: Emphysema type: unspecified (3) Dizziness, nonspecific Status: Acute (4) History of unsteady gait Status: Acute (5) Nicotine dependence Status: Chronic Qualifiers: Nicotine product type: cigarettes (6) Hypertension Status: Acute Qualifiers: Hypertension type: essential hypertension Qualified Code(s): I10 - Essential (primary) hypertension Core Measure Documentation - Palliative Care Palliative Care/ Comfort Measures: Not Applicable - Core Measures Any of the following diagnoses?: none Exam - Constitutional Vitals: Temp Pulse Resp BP Pulse Ox 98.1 F 77 18 142/70 96 09/05/18 07:42 09/05/18 07:51 09/05/18 07:51 09/05/18 07:42 09/05/18 07:42 General appearance: Present: no acute distress, well-nourished - EENT Eyes: Present: PERRL ENT: hearing intact, clear oral mucosa - Neck Neck: Present: supple, normal ROM - Respiratory Respiratory effort: normal Respiratory: bilateral: CTA - Cardiovascular Heart Sounds: Present: S1 & S2. Absent: rub, click - Extremities Extremities: pulses symmetrical, No edema Peripheral Pulses: within normal limits - Abdominal General gastrointestinal: Present: soft, non-tender, non-distended, normal bowel sounds Female genitourinary: Present: normal - Integumentary Integumentary: Present: clear, warm, dry - Musculoskeletal Musculoskeletal: strength equal bilaterally, generalized weakness, other (gait improved at baseline and family at bedside.) - Psychiatric Psychiatric: appropriate mood/affect, intact judgment & insight - Neurologic Neurologic: CNII-XII intact, moves all extremities Plan Activity: advance as tolerated Diet: low cholesterol Special Instructions: record daily BP diary, smoking cessation, physical therapy Follow up with: EWA SCHMITZ MD [Primary Care Provider] - 3-5 Days Prescriptions: Nicotine [Habitrol] 21 mg TD QDAY #14 patch Lisinopril [Zestril TAB] 10 mg PO QDAY #20 tablet
== END 2018-09-05 15:17 | disposition home or self-care (01) ==
LOC: ED 12:39 → 4A 17:06
PROVIDERS: ADMIT Internal Medicine; ATTEND Internal Medicine
DX: R27.0 Ataxia, unspecified (principal); I10 Essential (primary) hypertension; J44.9 Chronic obstructive pulmonary disease, unspecified; F17.210 Nicotine dependence, cigarettes, uncomplicated; Z88.8 Allergy status to other drugs, medicaments and biological substances; Z79.899 Other long term (current) drug therapy
CPT/HCPCS: 36415; 70450; 70544; 70551; 80053; 81001; 82550; 82553; 83036; 83735; 84443; 84484; 85025; 85610; 85670; 85730; 93005; 93010; 93306; 93880; 94640; 96361; 96374; 96376; 99284; G0378; J7030; J7040; J7050

== ENCOUNTER 2019-03-02 23:07 | Observation (INO) | payer MEDICARE ==
[2019-03-02] MEDS ORDERED: IBUPROFEN 200 MG TAB PO ONE (23:47)
[2019-03-02] MEDS ORDERED: SODIUM CHLORIDE 0.9% 250ML 250 ML IV ONE (23:47)
[2019-03-02] MEDS ORDERED: FAMOTIDINE 20 MG/2 ML INJ IV ONE (23:47)
[2019-03-02] MEDS ORDERED: ALBUTEROL 2.5 MG/3 ML NEBU IH ONE (23:47)
[2019-03-02] MEDS ORDERED: ACETAMINOPHEN 325 MG TAB PO ONE (23:48)
--- NOTE | 2019-03-02 23:49 | Emergency Department Report ---
ED Chest Pain HPI - General Chief Complaint: Chest Pain Stated Complaint: CHEST PAIN Time Seen by Provider: 03/02/19 23:39 Source: patient, EMS (EMS records not available at time of chart dictation.), RN notes reviewed, old records reviewed Mode of arrival: Stretcher Limitations: Physical Limitation - History of Present Illness Initial Comments: During the entire history and physical examination, I am chaperoned and escorted by nurse Nae Yen The patient is an 78-year-old female with a history of possible TIA, COPD, question hypertension whom I have evaluated in the past. She presents to the ER today with complaint of nontraumatic left sided chest pain. The pain is present for a few hours. It is constant. It radiates to the back to the front in the front to the back. There is chronic cough, chronic shortness of breath. There are no urinary symptoms. There is no vomiting. There is no diaphoresis. The patient denies recent travel, surgery or immobilization. She does not have a primary care doctor at the moment. No recent cardiac risk stratification that she is aware of. MD Complaint: chest pain -: Gradual Onset: during rest Pain Location: left chest Pain Radiation: back, other Severity: moderate Quality: aching Consistency: constant Improves With: nothing Worsens With: nothing - Related Data On Oral Contraceptives: No Previous Rx's Medication Instructions Recorded Last Taken Type Aspirin [Aspirin BABY CHEW TAB] 81 mg PO QDAY #30 tab.chew 09/02/18 09/04/18 Rx Aspirin [Aspirin BABY CHEW TAB] 81 mg PO QDAY tab.chew 09/05/18 Unknown Rx AtorvaSTATin [Lipitor] 40 mg PO QHS tablet 09/05/18 Unknown Rx Nicotine [Habitrol] 21 mg TD QDAY #14 patch 09/05/18 Unknown Rx lisinopriL [Zestril TAB] 10 mg PO QDAY #20 tablet 09/05/18 Unknown Rx Allergies Allergy/AdvReac Type Severity Reaction Status Date / Time acetaminophen [From Lortab] AdvReac Swelling Verified 09/02/18 18:03 hydrocodone bitartrate AdvReac Swelling Verified 09/02/18 18:03 [From Lortab] Heart Score - HEART Score History: Slightly suspicious EKG: Non-specific Age: > 65 Risk factors: 1-2 risk factors Troponin: < normal limit HEART Score: 4 - Critical Actions Critical Actions: 4-6 pts:12-16.6% risk of adverse cardiac event. Should be admitted ED Review of Systems ROS: Stated complaint: CHEST PAIN Other details as noted in HPI Constitutional: malaise, weakness Eyes: denies: other ENT: congestion Respiratory: cough, shortness of breath Cardiovascular: chest pain Gastrointestinal: denies: nausea Genitourinary: denies: dysuria Musculoskeletal: back pain Neurological: weakness Psychiatric: anxiety Hematological/Lymphatic: denies: easy bleeding ED Past Medical Hx - Past Medical History Hx Hypertension: Yes Hx COPD: Yes Additional medical history: cholesterol - Surgical History Past Surgical History?: Yes Additional Surgical History: hysterectomy - Social History Smoking Status: Current Every Day Smoker Substance Use Type: None - Medications Home Medications: Home Medications Medication Instructions Recorded Confirmed Last Taken Type Aspirin [Aspirin BABY CHEW TAB] 81 mg PO QDAY #30 tab.chew 09/02/18 09/04/18 09/04/18 Rx Aspirin [Aspirin BABY CHEW TAB] 81 mg PO QDAY tab.chew 09/05/18 Unknown Rx AtorvaSTATin [Lipitor] 40 mg PO QHS tablet 09/05/18 Unknown Rx Nicotine [Habitrol] 21 mg TD QDAY #14 patch 09/05/18 Unknown Rx lisinopriL [Zestril TAB] 10 mg PO QDAY #20 tablet 09/05/18 Unknown Rx ED Physical Exam - General Limitations: Physical Limitation General appearance: alert, anxious - Head Head exam: Present: atraumatic, normocephalic - Eye Eye exam: Present: normal appearance, EOMI. Absent: nystagmus - ENT ENT exam: Present: normal exam, normal orophraynx, mucous membranes moist, normal external ear exam - Neck Neck exam: Present: normal inspection, full ROM. Absent: tenderness, meningismus - Respiratory Respiratory exam: Present: rhonchi (faint rhonchi noted in the left hemithorax), other (there is no redness, pus or streaking. Chaperoned by nurse Yen). Absent: respiratory distress, chest wall tenderness - Cardiovascular Cardiovascular Exam: Present: regular rate, normal rhythm, normal heart sounds. Absent: bradycardia, tachycardia, irregular rhythm, systolic murmur, diastolic murmur, rubs, gallop - GI/Abdominal GI/Abdominal exam: Present: soft. Absent: distended, tenderness, guarding, rebound, rigid, pulsatile mass - Extremities Exam Extremities exam: Present: normal inspection, full ROM, other (2+ pulses noted in the bilateral upper and lower extremities. The pelvis is stable. There is no long bony tenderness. The muscular compartments are soft. There is no redne ss, pus, streaking or erythema.). Absent: calf tenderness - Back Exam Back exam: Present: normal inspection, full ROM. Absent: tenderness, CVA tenderness (R), CVA tenderness (L), paraspinal tenderness, vertebral tenderness - Neurological Exam Neurological exam: Present: alert, oriented X3, other (there is no facial droop. The tongue is midline. Extraocular movements are intact bilaterally. Speaking in full sentences. Hearing is grossly intact. 5 out of 5 strength bilateral upper and lower extremities. Sensation is intact to light touch bilateral upper and lower extremities.). Absent: motor sensory deficit - Psychiatric Psychiatric exam: Present: anxious - Skin Skin exam: Present: warm, dry, intact, normal color. Absent: rash ED Course Vital Signs 03/02/19 03/02/19 03/02/19 23:48 23:49 23:50 Temperature Pulse Rate 96 H 99 H 90 Respiratory 15 21 19 Rate Blood Pressure 189/105 O2 Sat by Pulse 96 96 Oximetry 03/02/19 03/03/19 23:51 00:49 Temperature 98.7 F Pulse Rate 84 Respiratory Rate Blood Pressure 159/104 O2 Sat by Pulse Oximetry - Reevaluation(s) Reevaluation #1: 03/03/19 00:16 Differential diagnosis, including but not limited to: Costochondritis, GERD, gastritis, pneumonia, acute coronary syndrome, urinary tract infection, pulmonary embolism, COPD Assessment and plan: 78-year-old female with poorly characterized chest pain. She is currently afebrile with reassuring vital signs, may have some faint focal pulmonary findings on her left hemithorax were her pain is. We will treat her pain, she states she can take acetaminophen by itself, she cannot take Lortab. We will give albuterol, nonnarcotic pain medication, obtain screening laboratory studies, urinalysis, x-ray the chest, and we will reassess after her initial data points. Given advanced age, moderate risk for major adverse cardiac event as per heart score, anticipate admission to the medical service for cardiac risk stratification if no alternative pathology is identified in emergency room testing Reevaluation #2: 03/03/19 01:01 EKG is reviewed and appreciated. Troponin is negative. Urinalysis pending. D- dimer negative. Hospital physician, Dr. Chicas to admit patient to the medical service for cardiac risk stratification. We will defer to the inpatient team to follow up on urinalysis. PITER score - Piter Score Age > 65: (1) Yes Aspirin use within the Past 7 Days: (1) Yes 3 or more CAD Risk Factors: (0) No 2 or more Angina events in past 24 hrs: (0) No Known CAD with more than 50% Stenosis: (0) No Elevated Cardiac Markers: (0) No ST Deviation Greater than 0.5mm: (0) No PITER Score: 2 ED Medical Decision Making - Lab Data Result diagrams: 03/02/19 23:53 03/02/19 23:53 Vital Signs 03/02/19 03/02/19 03/02/19 23:48 23:49 23:50 Temperature Pulse Rate 96 H 99 H 90 Respiratory 15 21 19 Rate Blood Pressure 189/105 O2 Sat by Pulse 96 96 Oximetry 03/02/19 23:51 Temperature 98.7 F Pulse Rate Respiratory Rate Blood Pressure O2 Sat by Pulse Oximetry - EKG Data 03/03/19 00:28 The EKG today shows low voltage, normal sinus, 84 bpm, there is a normal axis, QTC is 456 ms, there is motion artifact, the EKG has nonspecific abnormalities, and is not consistent with stemi - Radiology Data Radiology results: pending, report reviewed, image reviewed Print Report Referring Physician: TANYA SOLIS Patient Name: JESSICA MARTINEZ Date of : 1940 Sex: Female Report Date: 2019-03-03 Report Status: Finalized Findings [facility] [address] [place] [address] XRay Report Signed Patient: JESSICA MARTINEZ MR#: [id number] : 1940 Acct:[id number] Age/Sex: 78 / F ADM Date: 03/02/19 Loc: ED Attending Dr: Ordering Physician: TANYA SOLIS MD Date of Service: 03/02/19 Procedure(s): XR chest routine 2V Accession Number(s): [id number] cc: TANYA SOLIS MD Fluoro Time In Minutes: CHEST PA AND LATERAL VIEWS INDICATION: chest pain. COMPARISON: None. FINDINGS: Support devices: None. Heart: Upper limits of normal. Lungs/Pleura: No acute pulmonary or pleural findings. There is thoracic kyphosis and spondylosis. IMPRESSION: 1. No acute findings. Signer Name: Reynold Hernández MD Signed: 03/03/2019 12:21 AM Workstation Name: [id number] Transcribed By: RONAK Dictated By: Reynold Hernández MD Electronically Authenticated By: Reynold Hernández MD Signed Date/Time: 03/03/1920 DD/ TD/TT: Critical care attestation.: If time is entered above; I have spent that time in minutes in the direct care of this critically ill patient, excluding procedure time. ED Disposition Clinical Impression: COPD (chronic obstructive pulmonary disease), Acute chest pain Disposition: 09 OP ADMIT IP TO THIS HOSP Is pt being admited?: Yes Does the pt Need Aspirin: Yes Condition: Stable Instructions: Chronic Obstructive Pulmonary Disease (ED), Chest Pain (ED)
--- NOTE | 2019-03-03 00:25 | XRay Report ---
CHEST PA AND LATERAL VIEWS INDICATION: chest pain. COMPARISON: None. FINDINGS: Support devices: None. Heart: Upper limits of normal. Lungs/Pleura: No acute pulmonary or pleural findings. There is thoracic kyphosis and spondylosis. IMPRESSION: 1. No acute findings. Signer Name: Reynold Hernández MD Signed: 03/03/2019 12:21 AM Workstation Name: [id number] ([id number])
[2019-03-03 00:30] LABS: Hematocrit 40.2 % (30.3-42.9); Hemoglobin 13.8 gm/dl (10.1-14.3); Mean Corpuscular HGB Conc 34 % (30-34); Mean Corpuscular Volume 98 fl (79-97); Platelet Count 287 K/mm3 (140-440); Red Blood Count 4.09 M/mm3 (3.65-5.03); Red Cell Distribution Width 13.8 % (13.2-15.2)
[2019-03-03 00:46] LABS: Alanine Aminotransferase 8 units/L (7-56); Albumin 4.1 g/dL (3.9-5); BUN/Creatinine Ratio 16; Blood Urea Nitrogen 8 mg/dL (7-17); Calcium 9.6 mg/dL (8.4-10.2); Hemolysis Index 4
[2019-03-03] MEDS: NITROGLYCERIN 0.4 MG TAB SUBL SL PRN ×2 (00:49→01:14)
[2019-03-03] MEDS ORDERED: ASPIRIN 81 MG TAB CHEW PO ONE (01:01)
[2019-03-03] MEDS ORDERED: MORPHINE 2 MG/1 ML INJ IV PRN (01:18)
[2019-03-03] MEDS ORDERED: ALBUTEROL 2.5 MG/3 ML NEBU IH PRN (01:18)
[2019-03-03] MEDS ORDERED: ONDANSETRON 4 MG/2 ML INJ IV PRN (01:18)
[2019-03-03] MEDS ORDERED: hydrALAZINE 20 MG/1 ML INJ IV PRN (01:23)
[2019-03-03 01:33] LABS: Bilirubin,Urine NEG (Negative); Blood,Urine NEG (Negative); Color,Urine Yellow (Yellow); Protein,Urine <15 mg/dL mg/dL (Negative)
--- NOTE | 2019-03-03 01:53 | History and Physical Report ---
<FERNANDO DAVILA - Last Filed: 03/03/19 01:45> History of Present Illness Date of examination: 03/03/19 Date of admission: 03/03/2019 Chief complaint: chest pain History of present illness: 78-year-old female who is an ongoing smoker with a history of hypertension, COPD, HLD, TIA who presents to [facility] ED with complaints of chest pain. Patient states her pain began around 930 this morning while she was sitting down. The pain started under her left breast with radiation to left back. She describes the pain as sharp/squeezing. She rates the pain 6/10. The pain is constant. Patient admits to mild shortness of breath at rest and dyspnea with exertion. Patient has COPD and is unsure whether or not her shortness of breath is due to her chest pain or COPD. She denies nausea, emesis or diaphoresis. Past History Past Medical History: COPD, hypertension, hyperlipidemia, other (TIA) Past Surgical History: hysterectomy Social history: smoking (smokes 1/2 to a pack per day) Family history: no significant family history Medications and Allergies Allergies Allergy/AdvReac Type Severity Reaction Status Date / Time acetaminophen [From Lortab] AdvReac Swelling Verified 09/02/18 18:03 hydrocodone bitartrate AdvReac Swelling Verified 09/02/18 18:03 [From Lortab] Home Medications Medication Instructions Recorded Confirmed Last Taken Type Aspirin [Aspirin BABY CHEW TAB] 81 mg PO QDAY #30 tab.chew 09/02/18 09/04/18 09/04/18 Rx Aspirin [Aspirin BABY CHEW TAB] 81 mg PO QDAY tab.chew 09/05/18 Unknown Rx AtorvaSTATin [Lipitor] 40 mg PO QHS tablet 09/05/18 Unknown Rx Nicotine [Habitrol] 21 mg TD QDAY #14 patch 09/05/18 Unknown Rx lisinopriL [Zestril TAB] 10 mg PO QDAY #20 tablet 09/05/18 Unknown Rx Active Meds: Active Medications Albuterol (Proventil) 2.5 mg IH Q3HRT PRN PRN Reason: Shortness Of Breath Aspirin (Baby Aspirin) 81 mg PO QDAY SEVEN Atorvastatin Calcium (Lipitor) 40 mg PO QHS SEVEN Benzonatate (Tessalon Perles) 100 mg PO Q8HR SEVEN Stop: 03/06/19 05:59 Guaifenesin (Mucinex Er) 600 mg PO BID [facility] Heparin Sodium (Porcine) (Heparin) 5,000 unit SUB-Q Q12HR [facility] Hydralazine HCl (Apresoline) 10 mg IV Q4HR PRN PRN Reason: Blood Pressure Lisinopril (Zestril) 10 mg PO QDAY [facility] Morphine Sulfate (Morphine) 2 mg IV Q4H PRN PRN Reason: Pain, Moderate (4-6) Nicotine (Habitrol) 14 mg TD QDAY [facility] Nitroglycerin (Nitrostat) 0.4 mg SL .Q5MIN PRN PRN Reason: Chest Pain Last Admin: 03/03/19 01:14 Dose: 0.4 mg Documented by: Ondansetron HCl (Zofran) 4 mg IV Q8H PRN PRN Reason: Nausea And Vomiting Sodium Chloride (Sodium Chloride Flush Syringe 10 Ml) 10 ml IV BID SEVEN Sodium Chloride (Sodium Chloride Flush Syringe 10 Ml) 10 ml IV PRN PRN PRN Reason: LINE FLUSH Review of Systems All systems: negative Cardiovascular: chest pain, shortness of breath, dyspnea on exertion Respiratory: cough with sputum (clear thin mucus) Exam - Physical Exam Narrative exam: Physical exam General appearance: Present: No acute distress, alert and oriented 3, looks older than stated age, adult female - EENT Eyes: Present: PERRL, EOM intact ENT: Hard of hearing, poor dentition - Neck Neck: Present: supple, normal ROM - Respiratory Respiratory effort: Non-labored Respiratory: Faint wheezing - Cardiovascular Heart rate: 90 (bpm) Rhythm: SR Heart Sounds: Present: S1 & S2. Absent: rub, click - Extremities Extremities: no ischemia, pulses intact, - Peripheral Assessment Peripheral Pulses: within normal limits - Abdominal General gastrointestinal: soft, non-tender, normal bowel sounds - Integumentary Integumentary: Present: warm, dry - Musculoskeletal Musculoskeletal: Able to move all extremities -Neurological Neurological: CN II-XII intact - Psychiatric Psychiatric: cooperative - Constitutional Vitals: Temp Pulse Resp BP Pulse Ox 98.7 F 98 H 19 163/107 95 03/02/19 23:51 03/03/19 01:18 03/03/19 01:06 03/03/19 01:14 03/03/19 01:00 PITER score - Piter Score Age > 65: (1) Yes Aspirin use within the Past 7 Days: (1) Yes 3 or more CAD Risk Factors: (0) No 2 or more Angina events in past 24 hrs: (0) No Known CAD with more than 50% Stenosis: (0) No Elevated Cardiac Markers: (0) No ST Deviation Greater than 0.5mm: (0) No PITER Score: 2 Results - Labs CBC & Chem 7: 03/02/19 23:53 03/02/19 23:53 Labs: Laboratory Last Values WBC 7.7 K/mm3 (4.5-11.0) 03/02/19 23:53 RBC 4.09 M/mm3 (3.65-5.03) 03/02/19 23:53 Hgb 13.8 gm/dl (10.1-14.3) 03/02/19 23:53 Hct 40.2 % (30.3-42.9) 03/02/19 23:53 MCV 98 fl (79-97) H 03/02/19 23:53 MCH 34 pg (28-32) H 03/02/19 23:53 MCHC 34 % (30-34) 03/02/19 23:53 RDW 13.8 % (13.2-15.2) 03/02/19 23:53 Plt Count 287 K/mm3 (140-440) 03/02/19 23:53 PT 13.3 Sec. (12.2-14.9) 03/02/19 23:53 INR 1.00 (0.87-1.13) 03/02/19 23:53 D-Dimer 135.00 ng/mlDDU (0-234) 03/02/19 23:53 Sodium 137 mmol/L (137-145) 03/02/19 23:53 Potassium 3.9 mmol/L (3.6-5.0) 03/02/19 23:53 Chloride 102.3 mmol/L (98-107) 03/02/19 23:53 Carbon Dioxide 21 mmol/L (22-30) L 03/02/19 23:53 Anion Gap 18 mmol/L 03/02/19 23:53 BUN 8 mg/dL (7-17) 03/02/19 23:53 Creatinine 0.5 mg/dL (0.7-1.2) L 03/02/19 23:53 Estimated GFR > 60 ml/min 03/02/19 23:53 BUN/Creatinine Ratio 16 % 03/02/19 23:53 Glucose 119 mg/dL (65-100) H 03/02/19 23:53 Calcium 9.6 mg/dL (8.4-10.2) 03/02/19 23:53 Magnesium 2.20 mg/dL (1.7-2.3) 03/02/19 23:53 Total Bilirubin 0.60 mg/dL (0.1-1.2) 03/02/19 23:53 AST 16 units/L (5-40) 03/02/19 23:53 ALT 8 units/L (7-56) 03/02/19 23:53 Alkaline Phosphatase 76 units/L (35-129) 03/02/19 23:53 Total Creatine Kinase 62 units/L (30-135) 03/02/19 23:53 Troponin T < 0.010 ng/mL (0.00-0.029) 03/02/19 23:53 Total Protein 7.3 g/dL (6.3-8.2) 03/02/19 23:53 Albumin 4.1 g/dL (3.9-5) 03/02/19 23:53 Albumin/Globulin Ratio 1.3 % 03/02/19 23:53 Lipase 31 units/L (13-60) 03/02/19 23:53 Urine Color Yellow (Yellow) 03/03/19 00:21 Urine Turbidity Slightly-cloudy (Clear) 03/03/19 00:21 Urine pH 6.0 (5.0-7.0) 03/03/19 00:21 Ur Specific [place] 1.018 (1.003-1.030) 03/03/19 00:21 Urine Protein <15 mg/dl mg/dL (Negative) 03/03/19 00: Urine Glucose (UA) Neg mg/dL (Negative) 03/03/19 00: Urine Ketones Neg mg/dL (Negative) 03/03/19 00: Urine Blood Neg (Negative) 03/03/19 00: Urine Nitrite Pos (Negative) 03/03/19 00: Urine Bilirubin Neg (Negative) 03/03/19 00: Urine Urobilinogen 4.0 mg/dL (<2.0) 03/03/19 00:21 Ur Leukocyte Esterase Tr (Negative) 03/03/19 00:21 Urine WBC (Auto) 11.0 /HPF (0.0-6.0) H 03/03/19 00:21 Urine RBC (Auto) 1.0 /HPF (0.0-6.0) 03/03/19 00:21 U Epithel Cells (Auto) 1.0 /HPF (0-13.0) 03/03/19 00:21 - Imaging and Cardiology Imaging and Cardiology: CXR FINDINGS: Support devices: None. Heart: Upper limits of normal. Lungs/Pleura: No acute pulmonary or pleural findings. There is thoracic kyphosis and spondylosis. IMPRESSION: 1. No acute findings. Assessment and Plan Assessment and plan: 78-year-old female who is an ongoing smoker with a history of hypertension, COPD, HLD, TIA who presents to [facility] ED with complaints of chest pain. Hypertensive urgency -BP on admission 189/105 -Hx Hypertension -Continue to monitor BP -Resume home antihypertensive meds to optimize BP -IV antihypertensive when necessary Acute Atypical chest Pain -Likely due to coronary artery vasospasm -Initiate chest pain protocol -Continuous telemetry monitoring -Continue supportive care -Pain mgmt -Troponin negative x 1 , will continue to trend -EKG unrevealing for acute ischemic abnormalities -Cardiology consulted COPD -Albuterol prn HLD -On Statin Tobacco abuse -Current every day smoker -Smokes half to whole pack per day -Counseled for cessation 10 minutes -Nicotine patch when necessary DVT PPX -On Heparin Advance Directives: No VTE prophylaxis?: Chemical Plan of care discussed with patient/family: Yes <VI PEREZ - Last Filed: 03/03/19 06:42> History of Present Illness Date of admission: 03/03/19 03:16 Medications and Allergies Active Meds: Active Medications Albuterol (Proventil) 2.5 mg IH Q3HRT PRN PRN Reason: Shortness Of Breath Aspirin (Baby Aspirin) 81 mg PO QDAY [facility] Atorvastatin Calcium (Lipitor) 40 mg PO QHS [facility] Benzonatate (Tessalon Perles) 100 mg PO Q8HR [facility] Stop: 03/06/19 05:59 Guaifenesin (Mucinex Er) 600 mg PO BID [facility] Last Admin: 03/03/19 03:47 Dose: 600 mg Documented by: Heparin Sodium (Porcine) (Heparin) 5,000 unit SUB-Q Q12HR [facility] Hydralazine HCl (Apresoline) 10 mg IV Q4HR PRN PRN Reason: Blood Pressure Lisinopril (Zestril) 10 mg PO QDAY SEVEN Morphine Sulfate (Morphine) 2 mg IV Q4H PRN PRN Reason: Pain, Moderate (4-6) Nicotine (Habitrol) 14 mg TD QDAY [facility] Nitroglycerin (Nitrostat) 0.4 mg SL .Q5MIN PRN PRN Reason: Chest Pain Last Admin: 03/03/19 01:14 Dose: 0.4 mg Documented by: Ondansetron HCl (Zofran) 4 mg IV Q8H PRN PRN Reason: Nausea And Vomiting Sodium Chloride (Sodium Chloride Flush Syringe 10 Ml) 10 ml IV BID [facility] Sodium Chloride (Sodium Chloride Flush Syringe 10 Ml) 10 ml IV PRN PRN PRN Reason: LINE FLUSH Exam - Constitutional Vitals: Temp Pulse Resp BP Pulse Ox 98.4 F 86 18 147/87 95 03/03/19 05:28 03/03/19 05:28 03/03/19 05:28 03/03/19 05:28 03/03/19 05:28 Results - Labs CBC & Chem 7: 03/02/19 23:53 03/02/19 23:53 Labs: Laboratory Last Values WBC 7.7 K/mm3 (4.5-11.0) 03/02/19 23:53 RBC 4.09 M/mm3 (3.65-5.03) 03/02/19 23:53 Hgb 13.8 gm/dl (10.1-14.3) 03/02/19 23:53 Hct 40.2 % (30.3-42.9) 03/02/19 23:53 MCV 98 fl (79-97) H 03/02/19 23:53 MCH 34 pg (28-32) H 03/02/19 23:53 MCHC 34 % (30-34) 03/02/19 23:53 RDW 13.8 % (13.2-15.2) 03/02/19 23:53 Plt Count 287 K/mm3 (140-440) 03/02/19 23:53 PT 13.3 Sec. (12.2-14.9) 03/02/19 23:53 INR 1.00 (0.87-1.13) 03/02/19 23:53 D-Dimer 135.00 ng/mlDDU (0-234) 03/02/19 23:53 Sodium 137 mmol/L (137-145) 03/02/19 23:53 Potassium 3.9 mmol/L (3.6-5.0) 03/02/19 23:53 Chloride 102.3 mmol/L (98-107) 03/02/19 23:53 Carbon Dioxide 21 mmol/L (22-30) L 03/02/19 23:53 Anion Gap 18 mmol/L 03/02/19 23:53 BUN 8 mg/dL (7-17) 03/02/19 23:53 Creatinine 0.5 mg/dL (0.7-1.2) L 03/02/19 23:53 Estimated GFR > 60 ml/min 03/02/19 23:53 BUN/Creatinine Ratio 16 % 03/02/19 23:53 Glucose 119 mg/dL (65-100) H 03/02/19 23:53 Calcium 9.6 mg/dL (8.4-10.2) 03/02/19 23:53 Magnesium 2.20 mg/dL (1.7-2.3) 03/02/19 23:53 Total Bilirubin 0.60 mg/dL (0.1-1.2) 03/02/19 23:53 AST 16 units/L (5-40) 03/02/19 23:53 ALT 8 units/L (7-56) 03/02/19 23:53 Alkaline Phosphatase 76 units/L (35-129) 03/02/19 23:53 Total Creatine Kinase 62 units/L (30-135) 03/02/19 23:53 Troponin T < 0.010 ng/mL (0.00-0.029) 03/02/19 23:53 Total Protein 7.3 g/dL (6.3-8.2) 03/02/19 23:53 Albumin 4.1 g/dL (3.9-5) 03/02/19 23:53 Albumin/Globulin Ratio 1.3 % 03/02/19 23:53 Lipase 31 units/L (13-60) 03/02/19 23:53 Urine Color Yellow (Yellow) 03/03/19 00:21 Urine Turbidity Slightly-cloudy (Clear) 03/03/19 00:21 Urine pH 6.0 (5.0-7.0) 03/03/19 00:21 Ur Specific [place] 1.018 (1.003-1.030) 03/03/19 00:21 Urine Protein <15 mg/dl mg/dL (Negative) 03/03/19 00: Urine Glucose (UA) Neg mg/dL (Negative) 03/03/19 00: Urine Ketones Neg mg/dL (Negative) 03/03/19 00: Urine Blood Neg (Negative) 03/03/19: Urine Nitrite Pos (Negative) 03/03/19 00: Urine Bilirubin Neg (Negative) 03/03/19 00: Urine Urobilinogen 4.0 mg/dL (<2.0) 03/03/19 00:21 Ur Leukocyte Esterase Tr (Negative) 03/03/19 00: Urine WBC (Auto) 11.0 /HPF (0.0-6.0) H 03/03/19 00:21 Urine RBC (Auto) 1.0 /HPF (0.0-6.0) 03/03/19 00:21 U Epithel Cells (Auto) 1.0 /HPF (0-13.0) 03/03/19 00:21 Assessment and Plan Assessment and plan: Patient seen and examined, discussed with nurse practitioner. She presents with atypical chest pain lasting for a few seconds. Agree with plan as stated above
[2019-03-03] MEDS ORDERED: guaiFENesin ER 600 MG TAB PO ONE (03:27)
[2019-03-03] MEDS: guaiFENesin ER 600 MG TAB PO SCH ×2 (03:47→09:56)
[2019-03-03] MEDS: BENZONATATE 100 MG CAP PO SCH ×2 (06:56→14:23)
[2019-03-03 06:58] LABS: HDL Cholesterol 47 mg/dL (40-59); LDL Cholesterol,Direct 171 mg/dL (50-130)
--- NOTE | 2019-03-03 08:29 | Consultation ---
History of Present Illness Consult date: 03/03/19 Consult reason: chest pain History of present illness: Impression Noncardiac chest pain, left lateral side, seems MSK pain trop negative, CXR negative. Uncontrolled HTN Prior echo in 08/2018 normal Ef 55-60% Carotid US 08/2018 negative for disease Plan Advise optimize BP control, she is now asymptomatic Consider cmoking cessation if possible No further outpt workup planned. Past History Past Medical History: COPD, hypertension, hyperlipidemia, other (TIA) Past Surgical History: hysterectomy Social history: smoking (smokes 1/2 to a pack per day) Family history: no significant family history Medications and Allergies Allergies Allergy/AdvReac Type Severity Reaction Status Date / Time acetaminophen [From Lortab] AdvReac Swelling Verified 09/02/18 18:03 hydrocodone bitartrate AdvReac Swelling Verified 09/02/18 18:03 [From Lortab] Home Medications Medication Instructions Recorded Confirmed Last Taken Type Aspirin [Aspirin BABY CHEW TAB] 81 mg PO QDAY #30 tab.chew 09/02/18 03/03/19 09/04/18 Rx Aspirin [Aspirin BABY CHEW TAB] 81 mg PO QDAY tab.chew 09/05/18 03/03/19 Unknown Rx AtorvaSTATin [Lipitor] 40 mg PO QHS tablet 09/05/18 03/03/19 Unknown Rx Nicotine [Habitrol] 21 mg TD QDAY #14 patch 09/05/18 03/03/19 Unknown Rx lisinopriL [Zestril TAB] 10 mg PO QDAY #20 tablet 09/05/18 03/03/19 Unknown Rx Active Meds: Active Medications Albuterol (Proventil) 2.5 mg IH Q3HRT PRN PRN Reason: Shortness Of Breath Aspirin (Baby Aspirin) 81 mg PO QDAY SEVEN Atorvastatin Calcium (Lipitor) 40 mg PO QHS SEVEN Benzonatate (Tessalon Perles) 100 mg PO Q8HR [facility] Stop: 03/06/19 05:59 Last Admin: 03/03/19 06:56 Dose: 100 mg Documented by: Guaifenesin (Mucinex Er) 600 mg PO BID [facility] Last Admin: 03/03/19 03:47 Dose: 600 mg Documented by: Heparin Sodium (Porcine) (Heparin) 5,000 unit SUB-Q Q12HR [facility] Hydralazine HCl (Apresoline) 10 mg IV Q4HR PRN PRN Reason: Blood Pressure Lisinopril (Zestril) 10 mg PO QDAY [facility] Morphine Sulfate (Morphine) 2 mg IV Q4H PRN PRN Reason: Pain, Moderate (4-6) Nicotine (Habitrol) 14 mg TD QDAY [facility] Nitroglycerin (Nitrostat) 0.4 mg SL .Q5MIN PRN PRN Reason: Chest Pain Last Admin: 03/03/19 01:14 Dose: 0.4 mg Documented by: Ondansetron HCl (Zofran) 4 mg IV Q8H PRN PRN Reason: Nausea And Vomiting Sodium Chloride (Sodium Chloride Flush Syringe 10 Ml) 10 ml IV BID [facility] Sodium Chloride (Sodium Chloride Flush Syringe 10 Ml) 10 ml IV PRN PRN PRN Reason: LINE FLUSH Review of Systems All systems: negative (prior history of left lateral chest pain now resolved) Physical Examination Vital Signs Resp Pulse Ox 20 95 03/02/19 23:39 03/02/19 23:39 General appearance: no acute distress HEENT: Positive: PERRL, EOMI Neck: Positive: neck supple Cardiac: Positive: Reg Rate and Rhythm, S1/S2 Lungs: Positive: Normal Exam Results 03/02/19 23:53 03/02/19 23:53 Cardiac Enzymes 03/02/19 Range/Units 23:53 AST 16 (5-40) units/L Coagulation 03/02/19 Range/Units 23:53 PT 13.3 (12.2-14.9) Sec. INR 1.00 (0.87-1.13) Lipids 03/03/19 Range/Units 05:37 Triglycerides 171 H (2-149) mg/dL Cholesterol 226 H (50-199) mg/dL HDL Cholesterol 47 (40-59) mg/dL Cholesterol/HDL Ratio 4.80 % CBC 03/02/19 Range/Units 23:53 WBC 7.7 (4.5-11.0) K/mm3 RBC 4.09 (3.65-5.03) M/mm3 Hgb 13.8 (10.1-14.3) gm/dl Hct 40.2 (30.3-42.9) % Plt Count 287 (140-440) K/mm3 Comprehensive Metabolic Panel 03/02/19 Range/Units 23:53 Sodium 137 (137-145) mmol/L Potassium 3.9 (3.6-5.0) mmol/L Chloride 102.3 (98-107) mmol/L Carbon Dioxide 21 L (22-30) mmol/L BUN 8 (7-17) mg/dL Creatinine 0.5 L (0.7-1.2) mg/dL Glucose 119 H (65-100) mg/dL Calcium 9.6 (8.4-10.2) mg/dL AST 16 (5-40) units/L ALT 8 (7-56) units/L Alkaline Phosphatase 76 (35-129) units/L Total Protein 7.3 (6.3-8.2) g/dL Albumin 4.1 (3.9-5) g/dL
[2019-03-03] MEDS ORDERED: LISINOPRIL 10 MG TAB PO SCH (10:00)
[2019-03-03] MEDS ORDERED: NICOTINE 14 MG/24 HR PATCH TD SCH (10:00)
[2019-03-03] MEDS ORDERED: HEPARIN 5,000 UNIT/1 ML VIAL SUB-Q SCH (10:00)
[2019-03-03 11:30] VITALS: BP 129/67
--- NOTE | 2019-03-03 13:22 | Discharge Summary ---
Providers - Providers Date of Admission: 03/03/19 03:16 Date of discharge: 03/03/19 Attending physician: SAJI CARROLL 03/03/19 06:41 Consult to Physician [CONS] Routine Comment: Consulting Provider: REMEDIOS GODINEZ Physician Instructions: Reason For Exam: cp Primary care physician: MUCK BOSS Hospitalization Condition: Stable Hospital course: 78-year-old female who is an ongoing smoker with a history of hypertension, COPD, HLD, TIA who presents to [facility] ED with complaints of chest pain. Hypertensive urgency -BP on admission 189/105 -Hx Hypertension -Continue to monitor BP -Resume home antihypertensive meds to optimize BP -IV antihypertensive when necessary -someone stole her Lisinopril, she request refills Acute Atypical chest Pain, Costochondritis +/- GERD most likely but defer to Cardiology -Likely due to coronary artery vasospasm -Initiate chest pain protocol -Continuous telemetry monitoring -Continue supportive care -Pain mgmt -Troponin negative x 1 , will continue to trend -EKG unrevealing for acute ischemic abnormalities -Cardiology consulted, input noted, no testing COPD -Albuterol prn HLD -On Statin Tobacco abuse -Current every day smoker -Smokes half to whole pack per day -Counseled for cessation 10 minutes -Nicotine patch offerred Disposition: DC-01 TO HOME OR SELFCARE Time spent for discharge: 33 min Core Measure Documentation - Palliative Care Palliative Care/ Comfort Measures: Not Applicable - Core Measures Any of the following diagnoses?: none - VTE Discharge Requirements Deep Vein Thrombosis/Pulmonary Embolism Present on Admission: No Exam - Constitutional Vitals: Temp Pulse Resp BP Pulse Ox 97.9 F 79 18 129/67 96 03/03/19 11:28 03/03/19 11:28 03/03/19 11:28 03/03/19 11:28 03/03/19 11:28 General appearance: Present: no acute distress - EENT Eyes: Present: EOM intact ENT: hearing decreased, no hearing intact - Neck Neck: Present: supple, normal ROM - Respiratory Respiratory effort: normal Respiratory: bilateral: CTA - Cardiovascular Rhythm: regular Heart Sounds: Present: S1 & S2 - Extremities Extremities: pulses intact Peripheral Pulses: within normal limits - Abdominal General gastrointestinal: Present: soft, tender Localized gastrointestinal: tender: epigastric periumbilical (to substernal area) - Integumentary Integumentary: Present: clear - Musculoskeletal Musculoskeletal: strength equal bilaterally - Psychiatric Psychiatric: cooperative - Neurologic Neurologic: CNII-XII intact (except for hearing and vision), no focal deficits, moves all extremities Plan Activity: other (no strenous activity) Diet: low salt Follow up with: PRIMARY CARE,MD [Primary Care Provider] - 7 Days Forms: Discharge Signature Page Prescriptions: Nicotine [Habitrol] 14 mg TD QDAY #15 patch Nitroglycerin [Nitrostat] 0.4 mg SL .Q5MIN PRN #10 tablet PRN Reason: Chest Pain Pantoprazole [Protonix] 40 mg PO QDAY #30 tablet lisinopriL [Zestril TAB] 10 mg PO QDAY #30 tablet
[2019-03-04] MEDS ORDERED: ASPIRIN 81 MG TAB CHEW PO SCH (10:00)
== END 2019-03-03 15:29 | disposition home or self-care (01) ==
LOC: ED 23:07 → 4A 03-03 03:16
PROVIDERS: ADMIT Internal Medicine; ATTEND Internal Medicine
DX: I16.0 Hypertensive urgency (principal); R07.89 Other chest pain; I10 Essential (primary) hypertension; J44.9 Chronic obstructive pulmonary disease, unspecified; E78.5 Hyperlipidemia, unspecified; F17.210 Nicotine dependence, cigarettes, uncomplicated; Z86.73 Personal history of transient ischemic attack (TIA), and cerebral infarction without residual deficits; Z90.710 Acquired absence of both cervix and uterus; Z79.82 Long term (current) use of aspirin; Z79.899 Other long term (current) drug therapy; Z88.5 Allergy status to narcotic agent; Z88.8 Allergy status to other drugs, medicaments and biological substances
CPT/HCPCS: 36415; 71046; 80053; 80061; 81001; 82550; 83690; 83735; 84484; 85027; 85379; 85610; 87076; 87086; 87186; 93005; 93010; 94644; 96372; 96374; 99284; G0378; J1644; J7050

== ENCOUNTER 2020-01-02 21:31 | Emergency (ER) | payer MEDICARE ==
[2020-01-02] MEDS ORDERED: ASPIRIN 325 MG TAB PO ONE (21:55)
--- NOTE | 2020-01-02 22:44 | XRay Report ---
CHEST 1 VIEW 01/02/2020 9:36 PM INDICATION / CLINICAL INFORMATION: Chest Pain. COMPARISON: 03/03/2019 FINDINGS: SUPPORT DEVICES: None. HEART / MEDIASTINUM: No significant abnormality. LUNGS / PLEURA: No significant pulmonary or pleural abnormality. No pneumothorax. ADDITIONAL FINDINGS: No significant additional findings. IMPRESSION: 1. No acute findings. Signer Name: Efrain James MD Signed: 01/02/2020 10:43 PM Workstation Name: [id number]
[2020-01-02 23:40] LABS: Basophils # (Auto) 0.1 K/mm3 (0.0-0.1); Basophils % (Auto) 1.1 % (0.0-1.8); Eosinophils % (Auto) 0.5 % (0.0-4.3); Hematocrit 42.3 % (30.3-42.9); Hemoglobin 14.8 gm/dl (10.1-14.3); Lymphocytes # (Auto) 1.1 K/mm3 (1.2-5.4); Lymphocytes % (Auto) 17.4 % (13.4-35.0); Mean Corpuscular HGB Conc 35 % (30-34); Mean Corpuscular Volume 104 fl (79-97); Monocytes # (Auto) 0.6 K/mm3 (0.0-0.8); Monocytes % (Auto) 9.1 % (0.0-7.3); Platelet Count 305 K/mm3 (140-440); Red Blood Count 4.08 M/mm3 (3.65-5.03); Red Cell Distribution Width 15.1 % (13.2-15.2)
[2020-01-03 00:35] LABS: Blood Urea Nitrogen 8 mg/dL (7-17); Calcium 10.3 mg/dL (8.4-10.2); Hemolysis Index 11
--- NOTE | 2020-01-03 00:38 | Emergency Department Report ---
ED General Adult HPI - General Chief complaint: Hyperglycemia Stated complaint: ELEVATED BLOOD PRESSURE PUI?: No Time Seen by Provider: 01/03/20 00:30 Source: patient, EMS Mode of arrival: Wheelchair Limitations: No Limitations - History of Present Illness Initial comments: Patient is an 79-year-old female that presents emergency room for elevated blood pressure. Patient states she has history of high blood pressure but is not taking her medication. Patient dates she has been out of her medications for many months. Patient states she supposed to be on lisinopril. Patient states that her blood pressure today was 220/100. Patient states she was brought in by EMS. Patient's current blood pressure is 185/88. Patient states that when her blood pressure is high she gets dizzy. Patient states her symptoms have resolve d. Patient denies dizziness at this time. Patient denies chest pain or shortness of breath. Patient denies headache. Patient denies blurry vision. Patient states she is feeling fine now. Patient denies recent travel. Patient denies recent international travel. Patient denies exposure to the novel coronavirus. Patient denies sick contacts. Patient denies fever and chills. Patient denies cough. Patient denies diarrhea. Patient denies coming in contact with anybody with symptoms of the novel coronavirus. -: Sudden Consistency: now resolved Improves with: medication, rest Worsens with: other Associated Symptoms: denies other symptoms. denies: confusion, chest pain, cough, diaphoresis, fever/chills, headaches, loss of appetite, malaise, nausea/vomiting, rash, seizure, shortness of breath, syncope, weakness Treatments Prior to Arrival: none - Related Data Previous Rx's Medication Instructions Recorded Last Taken Type Aspirin [Aspirin BABY CHEW TAB] 81 mg PO QDAY #30 tab.chew 09/02/18 09/04/18 Rx AtorvaSTATin [Lipitor] 40 mg PO QHS tablet 09/05/18 Unknown Rx Nicotine [Habitrol] 21 mg TD QDAY #14 patch 09/05/18 Unknown Rx Nicotine [Habitrol] 14 mg TD QDAY #15 patch 03/03/19 Unknown Rx Nitroglycerin [Nitrostat] 0.4 mg SL .Q5MIN PRN #10 tablet 03/03/19 Unknown Rx Pantoprazole [Protonix] 40 mg PO QDAY #30 tablet 03/03/19 Unknown Rx lisinopriL [Zestril TAB] 10 mg PO QDAY 30 Days #30 tablet 01/03/20 Unknown Rx Allergies Allergy/AdvReac Type Severity Reaction Status Date / Time acetaminophen [From Lortab] AdvReac Swelling Verified 01/02/20 21:50 hydrocodone bitartrate AdvReac Swelling Verified 09/02/18 18:03 [From Lortab] ED Review of Systems ROS: Stated complaint: ELEVATED BLOOD PRESSURE Other details as noted in HPI Constitutional: denies: chills, fever Eyes: denies: eye pain, eye discharge, vision change ENT: denies: ear pain, throat pain Respiratory: denies: cough, shortness of breath, wheezing Cardiovascular: denies: chest pain, palpitations Endocrine: no symptoms reported Gastrointestinal: denies: abdominal pain, nausea, diarrhea Genitourinary: denies: urgency, dysuria, discharge Musculoskeletal: denies: back pain, joint swelling, arthralgia Skin: denies: rash, lesions Neurological: denies: headache, weakness, paresthesias Psychiatric: denies: anxiety, depression Hematological/Lymphatic: denies: easy bleeding, easy bruising ED Past Medical Hx - Past Medical History Previous Medical History?: Yes Hx Hypertension: Yes Hx COPD: Yes Additional medical history: cholesterol - Surgical History Past Surgical History?: Yes Additional Surgical History: hysterectomy - Family History Family history: no significant - Social History Smoking Status: Current Every Day Smoker Substance Use Type: None - Medications Home Medications: Home Medications Medication Instructions Recorded Confirmed Last Taken Type Aspirin [Aspirin BABY CHEW TAB] 81 mg PO QDAY #30 tab.chew 09/02/18 03/03/19 09/04/18 Rx AtorvaSTATin [Lipitor] 40 mg PO QHS tablet 09/05/18 03/03/19 Unknown Rx Nicotine [Habitrol] 21 mg TD QDAY #14 patch 09/05/18 03/03/19 Unknown Rx Nicotine [Habitrol] 14 mg TD QDAY #15 patch 03/03/19 Unknown Rx Nitroglycerin [Nitrostat] 0.4 mg SL .Q5MIN PRN #10 tablet 03/03/19 Unknown Rx Pantoprazole [Protonix] 40 mg PO QDAY #30 tablet 03/03/19 Unknown Rx lisinopriL [Zestril TAB] 10 mg PO QDAY 30 Days #30 tablet 01/03/20 Unknown Rx ED Physical Exam - General Limitations: No Limitations General appearance: alert, in no apparent distress - Head Head exam: Present: atraumatic, normocephalic - Eye Eye exam: Present: normal appearance, PERRL Pupils: Present: normal accommodation - ENT ENT exam: Present: mucous membranes moist - Neck Neck exam: Present: normal inspection - Respiratory Respiratory exam: Present: normal lung sounds bilaterally. Absent: respiratory distress, wheezes, rales - Cardiovascular Cardiovascular Exam: Present: regular rate, normal rhythm. Absent: systolic murmur, diastolic murmur, rubs, gallop - GI/Abdominal GI/Abdominal exam: Present: soft, normal bowel sounds - Extremities Exam Extremities exam: Present: normal inspection - Back Exam Back exam: Present: normal inspection - Neurological Exam Neurological exam: Present: alert, oriented X3 - Psychiatric Psychiatric exam: Present: normal affect, normal mood - Skin Skin exam: Present: warm, dry, intact, normal color. Absent: rash ED Course Vital Signs 01/02/20 01/03/20 01/03/20 21:51 00:55 01:13 Temperature 98.7 F Pulse Rate 94 H 84 84 Respiratory 18 18 Rate Blood Pressure 185/88 Blood Pressure 131/85 [Right] O2 Sat by Pulse 96 97 96 Oximetry - Reevaluation(s) Reevaluation #1: Patient blood pressure is rechecked. Patient current blood pressure is 130/60. Patient denies any symptoms. Patient states he is feeling much better. Patient states she is ready to go home. Patient tolerated p.o. intake. Patient ambulatory in the ER. I discussed all results and clinical findings with patient. I discussed plan of care with patient. Patient agrees with plan of care. Patient is stable for discharge. Patient will be discharged home. Patient given discharge instructions. Patient voiced understanding of discharge instructions. 01/03/20 01:14 ED Medical Decision Making - Lab Data Result diagrams: 01/02/20 22:37 01/02/20 22:37 - EKG Data -: EKG Interpreted by Me EKG shows normal: sinus rhythm, axis, intervals, QRS complexes, ST-T waves Rate: normal - Radiology Data Radiology results: report reviewed, image reviewed interpreted by me: Chest x-ray: No pneumonia, no pneumothorax, no foreign body, no osseous findings, no acute findings CHEST 1 VIEW 01/02/2020 9:36 PM INDICATION / CLINICAL INFORMATION: Chest Pain. COMPARISON: 03/03/2019 FINDINGS: SUPPORT DEVICES: None. HEART / MEDIASTINUM: No significant abnormality. LUNGS / PLEURA: No significant pulmonary or pleural abnormality. No pneumothorax. ADDITIONAL FINDINGS: No significant additional findings. IMPRESSION: 1. No acute findings. - Medical Decision Making Patient is an 79-year-old female that presents emergency room with complaints of intermittent dizziness and elevated blood pressure. Patient's blood pressure initially was elevated in the ER however the blood pressure came back down to normal without any treatment. Patient has been noncompliant with her medications for many months. Patient's blood pressure prior to discharge 130/60. Patient is not require any further medical services. Patient's labs were essentially unremarkable except for mild hypernatremia. Patient instructed to increase water. Patient instructed to eat a low-salt diet. Patient given discharge directions. Patient stable for discharge. - Differential Diagnosis Dizziness, elevated blood pressure, dehydration, electrolyte imbalance Critical care attestation.: If time is entered above; I have spent that time in minutes in the direct care of this critically ill patient, excluding procedure time. ED Disposition Clinical Impression: Dizziness, nonspecific, Noncompliance, Hypernatremia Hypertension Qualifiers: Hypertension type: unspecified Qualified Code(s): I10 - Essential (primary) hypertension Disposition: - TO HOME OR SELFCARE Is pt being admited?: No Does the pt Need Aspirin: No Condition: Stable Instructions: Hypertension (ED), Hypernatremia, [id number], Hypertension, Adult, [id number], Hypertension, Adult, Managing Your Hypertension, Dizziness, [id number] Additional Instructions: Patient to follow-up with primary care in 2 to 3 days. Patient to monitor blood pressure at home. Patient to keep a blood pressure log. Patient to take blood pressure log to all follow-up appointments. Patient to eat a low salt, heart healthy diet.. Patient to rest. Patient to increase water. Patient to take meds as directed. Patient to return to the ER if condition worsens, changes or new symptoms arise. Prescriptions: lisinopriL [Zestril TAB] 10 mg PO QDAY 30 Days #30 tablet Referrals: PRIMARY CARE, [Primary Care Provider] - 2-3 Days Time of Disposition: 01:29
[2020-01-03 00:49] LABS: BUN/Creatinine Ratio 13
[2020-01-03 01:14] VITALS: BP 131/85
== END 2020-01-03 01:30 | disposition home or self-care (01) ==
LOC: ED 21:31
DX: E87.1 Hypo-osmolality and hyponatremia (principal); I10 Essential (primary) hypertension; R42 Dizziness and giddiness; J44.9 Chronic obstructive pulmonary disease, unspecified; F17.200 Nicotine dependence, unspecified, uncomplicated; Z90.710 Acquired absence of both cervix and uterus; Z79.82 Long term (current) use of aspirin; Z79.899 Other long term (current) drug therapy; Z88.8 Allergy status to other drugs, medicaments and biological substances
CPT/HCPCS: 36415; 71045; 80048; 84484; 85025; 93005

== ENCOUNTER 2020-03-23 23:10 | Observation (INO) | payer MEDICARE ==
--- NOTE | 2020-03-23 23:58 | Emergency Department Report ---
Blank Doc - Documentation Documentation: 79-year-old female that called EMS for dizziness, unsteady gait and unable to walk that occurred prior to arrival. Patient also stated has concerns about her hypertension that is elevated at nights. Denies any head trauma or injuries. 1- This initial assessment/diagnostic orders/clinical plan/ treatment(s) is/are subject to change based on pt's health status, clinical progression and re- assessment by fellow clinical providers in the ED. Further treatment and workup at subsequent clinical provers discretion. Patient/guardians urged not to elope from ED as their condition may be serious if not clinically assessed and managed. 2-stroke protocol initiated
--- NOTE | 2020-03-24 00:28 | Cat Scan Report ---
CT HEAD WITHOUT CONTRAST INDICATION / CLINICAL INFORMATION: Stroke symptoms. Dizziness and unsteady gait. Code stroke. TECHNIQUE: All CT scans at this location are performed using CT dose reduction for ALARA by means of automated exposure control. COMPARISON: CT dated 09/04/18 FINDINGS: HEMORRHAGE: None. EXTRA-AXIAL SPACES: Normal in size and morphology for the patient's age. VENTRICULAR SYSTEM: Normal in size and morphology for the patient's age. CEREBRAL PARENCHYMA: Scattered white matter hypodensities likely represent microangiopathy. No acute territorial infarct. MIDLINE SHIFT / HERNIATION: None. CEREBELLUM / BRAINSTEM: No significant abnormality. ORBITS: Normal as visualized. SOFT TISSUES: No significant abnormality. SKULL: No significant abnormality. PARANASAL SINUSES / MASTOID AIR CELLS: Normal as visualized. ADDITIONAL FINDINGS: None. IMPRESSION: 1. No acute intracranial abnormality. No significant change. CODE STROKE: Time of Communication (RADIOTELEGRAPHER/CDT): 11:20 PM Licensed Practitioner Receiving Report: Dr. Villarreal in the ED. Signer Name: Malachi Dotson MD Signed: 03/24/2020 12:23 AM Workstation Name: [id number]
--- NOTE | 2020-03-24 00:29 | Emergency Department Report ---
ED Neuro Deficit HPI - General Chief Complaint: Dizziness Stated Complaint: HIGH BP Time Seen by Provider: 03/23/20 23:57 Source: patient, EMS Mode of arrival: Wheelchair Limitations: Other - History of Present Illness Initial Comments: [facility] TeleStroke Metrics: LKW: 1930 Door Time: 2310 [facility] Contacted: 0002 [facility] at Bedside: 0006 NIHSS: 0014 Decision on Alteplase: Not to give as her last known well time is greater than 4.5 hours by the time of my evaluation, and her NIH stroke scale score is currently 0. Interventional Candidate: Not a candidate as her symptoms are not consistent with a large vessel proximal occlusion. Chief Complaint: Dizziness and elevated blood pressure HPI: Asked to see this patient in emergent telemedicine consultation utilizing interactive audio and video technologies. Consultation was performed with assistance of ancillary / medical staff at bedside. Verbal consent to perform the examination with telemedicine was obtained. Patient agreed to proceed with the consultation for acute stroke protocol. 79-year-old right-handed white female who comes to the emergency room by EMS for elevated blood pressure and severe dizziness this evening. Patient states that she takes a baby aspirin. She has never had a stroke or TIA before. Patient reported that she gets dizzy all the time, mostly at night. She mostly states that her dizziness at night is a lightheaded sensation. She has never had any vertigo. Sometimes she does feel off balance at night. Patient states that around 7:30 PM last night, she developed severe gait imbalance. She had trouble walking. She also felt very lightheaded as well. She denied any focal weakness. She ultimately called EMS due to her severe dizziness. She states that her dizziness tonight was similar to her typical episodes, but it was more severe tonight. EMS reported that her blood pressure was 209/111. By the time she came to the ER, blood pressure had normalized to 154/82. She currently feels better and is able to walk on her own. Patient currently without any focal motor or sensory deficits. No slurred speech or aphasia. Head CT showed no acute hemorrhage or mass. PMH: Hypertension, hyperlipidemia, and COPD SOC: Positive for tobacco abuse. Negative x2. She currently lives alone. FMH: Negative for stroke. ROS: 13 point review of systems were reviewed with the patient, and are all negative with the exception of the aforementioned in the history of present illness. VS: Temperature 98.5 F, pulse 97, respiration 17, blood pressure 154/82, oxygen saturation 96% on room air Exam: Patient is in no apparent distress. Patient appears as stated age. No obvious acute respiratory or cardiac distress. Patient is well groomed and well-nourished. 1a- LOC: Keenly responsive - 0 1b- LOC questions: Answers both questions correctly - 0 1c- LOC commands- Performs both tasks correctly- 0 2- Gaze: Normal; no gaze paresis or gaze deviation - 0 3- Visual Feng: normal, no Visual field deficit - 0 4- Facial movements: No facial palsy - 0 5- Upper limb motor No arm drift - 0 6- Lower limb motor No leg drift - 0 7- Limb Coordination: absent ataxia - 0 8- Sensory: no sensory loss - 0 9- Language - No aphasia - 0 10- Speech - No dysarthria - 0 11- Neglect / Extinction - none found - 0 NIHSS score: 0 Diagnostic Data: CT head showed no acute intracranial hemorrhage, mass, or large territory stroke Medical Data Reviewed: 1.Data?reviewed include clinical labs, radiology,?and medical tests; 2.Tests?results discussed w/performing or interpreting physician; 3.Obtaining/reviewing old medical records; 4.Obtaining?case history from another source; 5.Independent?review of image, tracing, or specimen. Medical Decision Making: - Extensive number of diagnosis or management options are considered below. - Extensive amount of complex data reviewed. - High risk of complication and/or morbidity or mortality are associated with differential diagnostic considerations below. - There may be?uncertain?outcome and increased probability of prolonged functional impairment or high probability of severe prolonged functional impairment associated with some of these differential diagnosis. Differential Diagnosis for Stroke: 1.?Cardioembolic?stroke 2. Small vessel disease/lacune 3. Thromboembolic, eilodq-[id number] mechanism 4.?Hypercoagulable?state-related infarct 5. Transient ischemic attack 6. Thrombotic mechanism, large artery disease Assessment: 1. Acute vestibulopathy. Possible posterior circulation TIA versus peripheral process versus hypertensive urgency. 2. Hypertension 3. Hyperlipidemia 4. COPD 5. Tobacco abuse Recommendations: Patient can be admitted to the hospital for further work-up of her symptoms Patient seems to be walking better and back to her baseline since her blood pressure has normalized Consult inpatient neurology team to assist with evaluation and management Continue the patient on her baby aspirin for now Okay to maintain systolic blood pressure to be less than 180 and diastolic blood pressure less than 90 to cover the possible hypertensive urgency Check MRI brain without contrast to rule out any acute intracranial process Check MRA of the head and neck to better evaluate her intracranial and extracranial blood vessels, with attention to the posterior circulation Check echocardiogram to gauge her cardiac function Maintain the patient on telemetry to look for paroxysmal atrial fibrillation Check hemoglobin A1c and lipid panel Consult PT and OT and ST Continue supportive care Plan of care was discussed with the patient Thank you for allowing [facility] to participate in the care of your patient. Please call me, Dr. Sanchez, with any questions at [phone]. Case discussed with the ER staff and the ER attending. Critical Care notation: I was called to see this critical patient emergently. I personally evaluated this critical patient for acute stroke evaluation, and determining their eligibility for IV Alteplase and interventional therapies. I have spent approximately 12 minutes with the patient, including time at bedside, time discussing the case with other physicians, reviewing plan of care, and time independently reviewing the records and scans. - Related Data Home Medications: Previous Rx's Medication Instructions Recorded Last Taken Type Aspirin [Aspirin BABY CHEW TAB] 81 mg PO QDAY #30 tab.chew 09/02/18 09/04/18 Rx AtorvaSTATin [Lipitor] 40 mg PO QHS tablet 09/05/18 Unknown Rx Nicotine [Habitrol] 21 mg TD QDAY #14 patch 09/05/18 Unknown Rx Nicotine [Habitrol] 14 mg TD QDAY #15 patch 03/03/19 Unknown Rx Nitroglycerin [Nitrostat] 0.4 mg SL .Q5MIN PRN #10 tablet 03/03/19 Unknown Rx Pantoprazole [Protonix] 40 mg PO QDAY #30 tablet 03/03/19 Unknown Rx lisinopriL [Zestril TAB] 10 mg PO QDAY 30 Days #30 tablet 01/03/20 Unknown Rx Allergies/Adverse Reactions: Allergies Allergy/AdvReac Type Severity Reaction Status Date / Time acetaminophen [From Lortab] AdvReac Swelling Verified 01/02/20 21:50 hydrocodone bitartrate AdvReac Swelling Verified 09/02/18 18:03 [From Lortab] ED Review of Systems ROS: Stated complaint: HIGH BP Other details as noted in HPI ED Past Medical Hx - Past Medical History Previous Medical History?: Yes Hx Hypertension: Yes Hx COPD: Yes Additional medical history: cholesterol - Surgical History Past Surgical History?: Yes Additional Surgical History: hysterectomy - Social History Smoking Status: Current Every Day Smoker Substance Use Type: None - Medications Home Medications: Home Medications Medication Instructions Recorded Confirmed Last Taken Type Aspirin [Aspirin BABY CHEW TAB] 81 mg PO QDAY #30 tab.chew 09/02/18 03/03/19 09/04/18 Rx AtorvaSTATin [Lipitor] 40 mg PO QHS tablet 09/05/18 03/03/19 Unknown Rx Nicotine [Habitrol] 21 mg TD QDAY #14 patch 09/05/18 03/03/19 Unknown Rx Nicotine [Habitrol] 14 mg TD QDAY #15 patch 03/03/19 Unknown Rx Nitroglycerin [Nitrostat] 0.4 mg SL .Q5MIN PRN #10 tablet 03/03/19 Unknown Rx Pantoprazole [Protonix] 40 mg PO QDAY #30 tablet 03/03/19 Unknown Rx lisinopriL [Zestril TAB] 10 mg PO QDAY 30 Days #30 tablet 01/03/20 Unknown Rx ED Neuro Physical Exam - General Limitations: Other General appearance: alert, in no apparent distress Suspected Stroke: No ED Course Vital Signs 03/23/20 23:53 Temperature 98.5 F Pulse Rate 97 H Respiratory 17 Rate Blood Pressure 154/82 O2 Sat by Pulse 96 Oximetry - Lab Data Lab Results 03/24/20 Range/Units 00:11 POC Glucose 90 (70-105) mg/dL Critical care attestation.: If time is entered above; I have spent that time in minutes in the direct care of this critically ill patient, excluding procedure time. ED Disposition Clinical Impression: Ataxia Disposition: DC-09 OP ADMIT IP TO THIS HOSP Is pt being admited?: Yes Does the pt Need Aspirin: Yes Condition: Stable
--- NOTE | 2020-03-24 00:29 | Emergency Department Report ---
ED Neuro Deficit HPI - General Chief Complaint: Neuro Symptoms/Deficit Stated Complaint: HIGH BP Time Seen by Provider: 03/23/20 23:57 Source: patient, EMS Mode of arrival: Wheelchair Limitations: Other - History of Present Illness Initial Comments: Patient is a 79 years old female with history of hypertension and COPD. Patient presented to the ER via EMS for evaluation of sudden onset of dizziness and unsteady gait. Patient stated that she had history of dizziness before when she walk or stand up. She stated that this time she was sitting when the symptoms started when she started walking she had an unsteady gait. Stroke protocol immediately initiated and patient examined by stroke teleneurology. Patient moved to CT for stat CT brain. Patient denied any focal weakness, numbness or tingling sensation. No headache or neck pain. Patient initial blood pressure by EMS was 200/110 however patient blood pressure dropped to 151/89 in the em ergency room without any medication. -: Sudden Location: ataxia Presenting Symptoms: Absent: Weak/Paralyzed One Side, Sudden, Severe Headache, Blurred/Loss of Vision, Facial Droop/Numbness, Unable to Speak Clearly, Altered Mental Status Place: home Severity: moderate Context: sudden onset - Related Data Home Medications: Previous Rx's Medication Instructions Recorded Last Taken Type Aspirin [Aspirin BABY CHEW TAB] 81 mg PO QDAY #30 tab.chew 09/02/18 09/04/18 Rx AtorvaSTATin [Lipitor] 40 mg PO QHS tablet 09/05/18 Unknown Rx Nicotine [Habitrol] 21 mg TD QDAY #14 patch 09/05/18 Unknown Rx Nicotine [Habitrol] 14 mg TD QDAY #15 patch 03/03/19 Unknown Rx Nitroglycerin [Nitrostat] 0.4 mg SL .Q5MIN PRN #10 tablet 03/03/19 Unknown Rx Pantoprazole [Protonix] 40 mg PO QDAY #30 tablet 03/03/19 Unknown Rx lisinopriL [Zestril TAB] 10 mg PO QDAY 30 Days #30 tablet 01/03/20 Unknown Rx Allergies/Adverse Reactions: Allergies Allergy/AdvReac Type Severity Reaction Status Date / Time acetaminophen [From Lortab] AdvReac Swelling Verified 01/02/20 21:50 hydrocodone bitartrate AdvReac Swelling Verified 09/02/18 18:03 [From Lortab] ED Review of Systems ROS: Stated complaint: HIGH BP Other details as noted in HPI Comment: All other systems reviewed and negative Constitutional: denies: chills, fever Respiratory: denies: cough, shortness of breath, SOB with exertion, wheezing Cardiovascular: denies: chest pain, palpitations Gastrointestinal: denies: abdominal pain, nausea, vomiting, diarrhea, constipation, hematemesis Musculoskeletal: denies: back pain Neurological: abnormal gait, vertigo. denies: headache, weakness, numbness, paresthesias, confusion ED Past Medical Hx - Past Medical History Previous Medical History?: Yes Hx Hypertension: Yes Hx COPD: Yes Additional medical history: cholesterol - Surgical History Past Surgical History?: Yes Additional Surgical History: hysterectomy - Social History Smoking Status: Current Every Day Smoker Substance Use Type: None - Medications Home Medications: Home Medications Medication Instructions Recorded Confirmed Last Taken Type Aspirin [Aspirin BABY CHEW TAB] 81 mg PO QDAY #30 tab.chew 09/02/18 03/03/19 09/04/18 Rx AtorvaSTATin [Lipitor] 40 mg PO QHS tablet 09/05/18 03/03/19 Unknown Rx Nicotine [Habitrol] 21 mg TD QDAY #14 patch 09/05/18 03/03/19 Unknown Rx Nicotine [Habitrol] 14 mg TD QDAY #15 patch 03/03/19 Unknown Rx Nitroglycerin [Nitrostat] 0.4 mg SL .Q5MIN PRN #10 tablet 03/03/19 Unknown Rx Pantoprazole [Protonix] 40 mg PO QDAY #30 tablet 03/03/19 Unknown Rx lisinopriL [Zestril TAB] 10 mg PO QDAY 30 Days #30 tablet 01/03/20 Unknown Rx ED Neuro Physical Exam - General Limitations: Other General appearance: alert, in no apparent distress Suspected Stroke: Yes - Head Head exam: Present: atraumatic, normocephalic, normal inspection - Eye Eye exam: Present: normal appearance - ENT ENT exam: Present: normal exam, normal orophraynx, mucous membranes moist - Neck Neck exam: Present: normal inspection, full ROM. Absent: tenderness, meningismu s, lymphadenopathy, thyromegaly - Respiratory Respiratory exam: Present: normal lung sounds bilaterally - Cardiovascular Cardiovascular Exam: Present: regular rate, normal rhythm, normal heart sounds - GI/Abdominal GI/Abdominal exam: Present: soft, normal bowel sounds. Absent: distended, tenderness, guarding, rebound, rigid, organomegaly, mass, bruit, pulsatile mass, hernia - Extremities Exam Extremities exam: Present: normal inspection, full ROM, normal capillary refill. Absent: pedal edema, calf tenderness - Back Exam Back exam: Present: normal inspection, full ROM. Absent: CVA tenderness (R), CVA tenderness (L) - Neurological Exam Neurological exam: Present: alert, oriented X3, CN II-XII intact, normal gait, reflexes normal. Absent: motor sensory deficit - NIHSS Assessment Interval: Baseline 1a. Level of Consciousness: alert/keenly responsive 1b. LOC Questions: answers both correctly 1c. LOC Commands: performs tasks correctly 2. Best Gaze: normal 3. Visual: no visual loss 4. Facial Palsy: normal symmetrical movement 5b. Motor Arm Right: no drift 5a. Motor Arm Left: no drift 6a. Motor Leg Left: no drift 6b. Motor Leg Right: no drift 7. Limb Ataxia: absent 8. Sensory: normal 9. Best Language: no aphasia 10. Dysarthria: normal 11. Extinction/Inattention: no abnormality Total Score: 0 Stroke Severity: No Stroke Symptoms - Psychiatric Psychiatric exam: Present: normal mood - Skin Skin exam: Present: warm, intact, normal color ED Course Vital Signs 03/23/20 03/24/20 23:53 00:46 Temperature 98.5 F Pulse Rate 97 H 78 Respiratory 17 16 Rate Blood Pressure 154/82 170/96 O2 Sat by Pulse 96 97 Oximetry - Lab Data Result diagrams: 03/24/20 00:21 03/24/20 00:21 Lab Results 03/24/20 03/24/20 03/24/20 Range/Units 00:11 00:21 00:21 WBC 7.2 (4.5-11.0) K/mm3 RBC 4.17 (3.65-5.03) M/mm3 Hgb 14.9 H (10.1-14.3) gm/dl Hct 43.5 H (30.3-42.9) % MCV 104 H (79-97) fl MCH 36 H (28-32) pg MCHC 34 (30-34) % RDW 14.0 (13.2-15.2) % Plt Count 287 (140-440) K/mm3 Lymph % (Auto) 18.8 (13.4-35.0) % [place] % (Auto) 7.9 H (0.0-7.3) % Eos % (Auto) 0.5 (0.0-4.3) % Baso % (Auto) 1.1 (0.0-1.8) % Lymph # (Auto) 1.3 (1.2-5.4) K/mm3 [place] # (Auto) 0.6 (0.0-0.8) K/mm3 Eos # (Auto) 0.0 (0.0-0.4) K/mm3 Baso # (Auto) 0.1 (0.0-0.1) K/mm3 Seg Neutrophils % 71.7 H (40.0-70.0) % Seg Neutrophils # 5.1 (1.8-7.7) K/mm3 PT 12.7 (12.2-14.9) Sec. INR 0.96 (0.87-1.13) APTT 29.0 (24.2-36.6) Sec. Thrombin Time 15.8 (15.1-19.6) Sec. Sodium (137-145) mmol/L Potassium (3.6-5.0) mmol/L Chloride (98-107) mmol/L Carbon Dioxide (22-30) mmol/L Anion Gap mmol/L BUN (7-17) mg/dL Creatinine (0.6-1.2) mg/dL Estimated GFR ml/min BUN/Creatinine Ratio % Glucose (65-100) mg/dL POC Glucose 90 (70-105) mg/dL Calcium (8.4-10.2) mg/dL Total Bilirubin (0.1-1.2) mg/dL AST (5-40) units/L ALT (7-56) units/L Alkaline Phosphatase (35-129) units/L Total Creatine Kinase (30-135) units/L CK-MB (CK-2) (0.0-4.0) ng/mL CK-MB (CK-2) Rel Index (0-4) Troponin T (0.00-0.029) ng/mL Total Protein (6.3-8.2) g/dL Albumin (3.9-5) g/dL Albumin/Globulin Ratio % 03/24/20 Range/Units 00:21 WBC (4.5-11.0) K/mm3 RBC (3.65-5.03) M/mm3 Hgb (10.1-14.3) gm/dl Hct (30.3-42.9) % MCV (79-97) fl MCH (28-32) pg MCHC (30-34) % RDW (13.2-15.2) % Plt Count (140-440) K/mm3 Lymph % (Auto) (13.4-35.0) % [place] % (Auto) (0.0-7.3) % Eos % (Auto) (0.0-4.3) % Baso % (Auto) (0.0-1.8) % Lymph # (Auto) (1.2-5.4) K/mm3 [place] # (Auto) (0.0-0.8) K/mm3 Eos # (Auto) (0.0-0.4) K/mm3 Baso # (Auto) (0.0-0.1) K/mm3 Seg Neutrophils % (40.0-70.0) % Seg Neutrophils # (1.8-7.7) K/mm3 PT (12.2-14.9) Sec. INR (0.87-1.13) APTT (24.2-36.6) Sec. Thrombin Time (15.1-19.6) Sec. Sodium 135 L (137-145) mmol/L Potassium 4.1 (3.6-5.0) mmol/L Chloride 101.6 (98-107) mmol/L Carbon Dioxide 24 (22-30) mmol/L Anion Gap 14 mmol/L BUN 8 (7-17) mg/dL Creatinine 0.5 L (0.6-1.2) mg/dL Estimated GFR > 60 ml/min BUN/Creatinine Ratio 16 % Glucose 97 (65-100) mg/dL POC Glucose (70-105) mg/dL Calcium 9.5 (8.4-10.2) mg/dL Total Bilirubin 0.60 (0.1-1.2) mg/dL AST 15 (5-40) units/L ALT 9 (7-56) units/L Alkaline Phosphatase 82 (35-129) units/L Total Creatine Kinase 61 (30-135) units/L CK-MB (CK-2) 2.0 (0.0-4.0) ng/mL CK-MB (CK-2) Rel Index 3.2 (0-4) Troponin T < 0.010 (0.00-0.029) ng/mL Total Protein 6.9 (6.3-8.2) g/dL Albumin 4.4 (3.9-5) g/dL Albumin/Globulin Ratio 1.8 % - EKG Data -: EKG Interpreted by Me EKG shows normal: sinus rhythm Rate: normal Interpretation: no acute changes - Radiology Data Radiology results: report reviewed - Medical Decision Making Patient is a 79 years old female with history of hypertension and COPD. Patient presented to the ER via EMS for evaluation of sudden onset of dizziness and unsteady gait. Patient stated that she had history of dizziness before when she walk or stand up. She stated that this time she was sitting when the symptoms started when she started walking she had an unsteady gait. Stroke protocol immediately initiated and patient examined by stroke teleneurology. Patient moved to CT for stat CT brain. Patient denied any focal weakness, numbness or tingling sensation. No headache or neck pain. Patient initial blood pressure by EMS was 200/110 however patient blood pressure dropped to 151/89 in the emergency room without any medication. Patient evaluated by Dr. Bailey, stroke teleneurology on-call and advised patient is not a TPA candidate however patient need to be admitted for stroke work-up. Patient symptoms could be from TIA or hypertensive emergency. CT brain without contrast is negative for acute finding. Labs reviewed and is unremarkable. I discussed the patient with Dr. Swift, he agreed to admit the patient to medical service for further management. Critical Care Time: Yes Critical care time in (mins) excluding proc time.: 30 Critical care attestation.: If time is entered above; I have spent that time in minutes in the direct care of this critically ill patient, excluding procedure time. ED Disposition Clinical Impression: Ataxia, TIA (transient ischemic attack) Disposition: OP ADMIT IP TO THIS HOSP Is pt being admited?: Yes Condition: Stable
[2020-03-24 00:35] LABS: Basophils # (Auto) 0.1 K/mm3 (0.0-0.1); Basophils % (Auto) 1.1 % (0.0-1.8); Eosinophils % (Auto) 0.5 % (0.0-4.3); Hematocrit 43.5 % (30.3-42.9); Hemoglobin 14.9 gm/dl (10.1-14.3); Lymphocytes # (Auto) 1.3 K/mm3 (1.2-5.4); Lymphocytes % (Auto) 18.8 % (13.4-35.0); Mean Corpuscular HGB Conc 34 % (30-34); Mean Corpuscular Volume 104 fl (79-97); Monocytes # (Auto) 0.6 K/mm3 (0.0-0.8); Monocytes % (Auto) 7.9 % (0.0-7.3); Platelet Count 287 K/mm3 (140-440); Red Blood Count 4.17 M/mm3 (3.65-5.03)
[2020-03-24 00:44] LABS: INR 0.96 (0.87-1.13); Thrombin Time 15.8 Sec. (15.1-19.6)
[2020-03-24 00:53] LABS: Alanine Aminotransferase 9 units/L (7-56); Albumin 4.4 g/dL (3.9-5); BUN/Creatinine Ratio 16; Blood Urea Nitrogen 8 mg/dL (7-17); Calcium 9.5 mg/dL (8.4-10.2); Hemolysis Index 5
[2020-03-24 01:14] LABS: Bacteria,Urine 4+ /HPF (Negative); Bilirubin,Urine NEG (Negative); Blood,Urine NEG (Negative); Color,Urine Straw (Yellow); Protein,Urine <15 mg/dL mg/dL (Negative); Urobilinogen,Urine < 2.0 mg/dL (<2.0)
[2020-03-24] MEDS ORDERED: ACETAMINOPHEN 325 MG TAB PO PRN ×2 (01:54)
[2020-03-24] MEDS ORDERED: MAGNESIUM HYDROXIDE (MOM) ORAL LIQD UDC PO PRN (01:54)
[2020-03-24] MEDS ORDERED: MORPHINE 2 MG/1 ML INJ IV PRN (01:54)
[2020-03-24] MEDS ORDERED: ONDANSETRON 4 MG/2 ML INJ IV PRN ×2 (01:54)
[2020-03-24] MEDS ORDERED: PROMETHAZINE 25 MG RECT SUPP PR PRN (01:54)
[2020-03-24] MEDS ORDERED: METOCLOPRAMIDE 10 MG TAB PO PRN (01:54)
--- NOTE | 2020-03-24 02:13 | History and Physical Report ---
History of Present Illness Date of examination: 03/24/20 Date of admission: 03/24/2020 Chief complaint: Dizziness Unsteady gait History of present illness: 79-year-old female with known history of COPD and hypertension presenting to the emergency room via EMS today complaining of dizziness and unsteady gait. Patient indicates that dizziness started when she tried to walk and stand up. She subsequently has also had unsteady gait. Patient denies any headache and no neck pain, she denies any weakness , numbness or tingling sensation in the extremities. Patient denies any chest pain or shortness of breath. She denies any fever or chills, no nausea vomiting and no abdominal pain. Patient denies any sick contacts and no recent travel, denies any contact with anyone with COVID-19. Initial blood pressure upon arrival of EMS was said to be due to 100s systolic and the low 100s diastolic however blood pressure improved to be 151/89 upon arrival in the emergency room. Upon arrival in the emergency room symptoms were said to have resolved. Work-up in the emergency room today CT scan of the head was unremarkable. Patient was evaluated by teleneurologist and recommendation is to have patient worked up for TIA versus CVA. Past History Past Medical History: COPD, hypertension, hyperlipidemia Past Surgical History: hysterectomy Social history: smoking (Current daily smoker) Family history: no significant family history Medications and Allergies Allergies Allergy/AdvReac Type Severity Reaction Status Date / Time acetaminophen [From Lortab] AdvReac Swelling Verified 01/02/20 21:50 hydrocodone bitartrate AdvReac Swelling Verified 09/02/18 18:03 [From Lortab] Home Medications Medication Instructions Recorded Confirmed Last Taken Type Aspirin [Aspirin BABY CHEW TAB] 81 mg PO QDAY #30 tab.chew 09/02/18 03/03/19 09/04/18 Rx AtorvaSTATin [Lipitor] 40 mg PO QHS tablet 09/05/18 03/03/19 Unknown Rx Nicotine [Habitrol] 21 mg TD QDAY #14 patch 09/05/18 03/03/19 Unknown Rx Nicotine [Habitrol] 14 mg TD QDAY #15 patch 03/03/19 Unknown Rx Nitroglycerin [Nitrostat] 0.4 mg SL .Q5MIN PRN #10 tablet 03/03/19 Unknown Rx Pantoprazole [Protonix] 40 mg PO QDAY #30 tablet 03/03/19 Unknown Rx lisinopriL [Zestril TAB] 10 mg PO QDAY 30 Days #30 tablet 01/03/20 Unknown Rx Active Meds: Active Medications Acetaminophen (Acetaminophen 325 Mg Tab) 650 mg PO Q4H PRN PRN Reason: Pain MILD(1-3)/Fever >100.5/[place] Acetaminophen (Acetaminophen 325 Mg Tab) 650 mg PO Q4H PRN PRN Reason: Pain, Mild (1-3) Aspirin (Aspirin 325 Mg Tab) 325 mg PO QDAY SEVEN Atorvastatin Calcium (Atorvastatin 40 Mg Tab) 40 mg PO QHS SEVEN Bisacodyl (Bisacodyl 10 Mg Rect Supp) 10 mg IN QDAY PRN PRN Reason: Constipation Magnesium Hydroxide (Magnesium Hydroxide (Mom) Oral Liqd Udc) 30 ml PO Q4H PRN PRN Reason: Constipation Metoclopramide HCl (Metoclopramide 10 Mg Tab) 10 mg PO Q6H PRN PRN Reason: Nausea And Vomiting Morphine Sulfate (Morphine 2 Mg/1 Ml Inj) 2 mg IV Q4H PRN PRN Reason: Pain, Moderate (4-6) Ondansetron HCl (Ondansetron 4 Mg/2 Ml Inj) 4 mg IV Q8H PRN PRN Reason: Nausea And Vomiting Ondansetron HCl (Ondansetron 4 Mg/2 Ml Inj) 4 mg IV Q8H PRN PRN Reason: Nausea And Vomiting Promethazine HCl (Promethazine 25 Mg Rect Supp) 25 mg IN Q6H PRN PRN Reason: Nausea And Vomiting Sodium Chloride (Sodium Chloride 0.9% 10 Ml Flush Syringe) 10 ml IV BID SEVEN Sodium Chloride (Sodium Chloride 0.9% 10 Ml Flush Syringe) 10 ml IV PRN PRN PRN Reason: LINE FLUSH Sodium Chloride (Sodium Chloride 0.9% 10 Ml Flush Syringe) 10 ml INJ PRN PRN PRN Reason: LINE FLUSH Review of Systems Constitutional: no fever, no chills Ears, nose, mouth and throat: no nasal congestion, no sore throat Cardiovascular: no chest pain, no palpitations Respiratory: no cough, no shortness of breath Gastrointestinal: no abdominal pain, no nausea, no vomiting, no diarrhea Genitourinary Female: no pelvic pain, no flank pain, no dysuria, no hematuria Musculoskeletal: no neck pain, no low back pain Integumentary: no rash, no pruritis Neurological: no headaches, no confusion Psychiatric: no anxiety, no depression Exam - Constitutional Vitals: Temp Pulse Resp BP Pulse Ox 98.5 F 78 16 170/96 97 03/23/20 23:53 03/24/20 00:46 03/24/20 00:46 03/24/20 00:46 03/24/20 00:46 General appearance: Present: no acute distress, well-nourished - EENT Eyes: Present: PERRL, EOM intact. Absent: scleral icterus ENT: hearing intact, clear oral mucosa, dentition normal - Neck Neck: Present: supple, normal ROM - Respiratory Respiratory effort: normal Respiratory: bilateral: CTA - Cardiovascular Rhythm: regular Heart Sounds: Present: S1 & S2. Absent: gallop, systolic murmur, diastolic murmur, rub, click - Extremities Extremities: no ischemia, pulses intact, pulses symmetrical, No edema, normal temperature, normal color, Full ROM Peripheral Pulses: within normal limits - Abdominal General gastrointestinal: Present: soft, non-tender, non-distended, normal bowel sounds. Absent: mass - Integumentary Integumentary: Present: clear, warm, dry. Absent: rash - Musculoskeletal Musculoskeletal: strength equal bilaterally - Psychiatric Psychiatric: appropriate mood/affect, intact judgment & insight, memory intact, cooperative - Neurologic Neurologic: CNII-XII intact, no focal deficits, moves all extremities HEART Score - HEART Score Troponin: Troponin T < 0.010 ng/mL (0.00-0.029) 03/24/20 00:21 Results - Labs CBC & Chem 7: 03/24/20 00:21 03/24/20 00:21 Labs: Abnormal lab results 03/24/20 03/24/20 03/24/20 Range/Units 00: 00:21 00:40 Hgb 14.9 H (10.1-14.3) gm/dl Hct 43.5 H (30.3-42.9) % MCV 104 H (79-97) fl MCH 36 H (28-32) pg [place] % (Auto) 7.9 H (0.0-7.3) % Seg Neutrophils % 71.7 H (40.0-70.0) % Sodium 135 L (137-145) mmol/L Creatinine 0.5 L (0.6-1.2) mg/dL Ur Specific [place] 1.002 L (1.003-1.030) Assessment and Plan - Patient Problems (1) TIA (transient ischemic attack) Current Visit: Yes Status: Acute Plan to address problem: Patient admitted and placed on telemetry. Patient placed on daily aspirin. Will schedule patient for MRI brain Consult placed to Neurologist for evaluation. (2) COPD (chronic obstructive pulmonary disease) Current Visit: No Status: Acute Plan to address problem: Patient will be placed on inhalers/nebulizers as needed. (3) Nicotine dependence Current Visit: No Status: Chronic Qualifiers: Nicotine product type: cigarettes Plan to address problem: Patient counseled on quitting tobacco abuse. Will offer nicotine patch as needed. (4) DVT prophylaxis Current Visit: No Status: Acute Plan to address problem: Patient placed on subcutaneous heparin. (5) Full code status Current Visit: Yes Status: Acute Plan to address problem: Patient is a full code.
[2020-03-24] MEDS: HEPARIN 5,000 UNIT/1 ML VIAL SUB-Q SCH ×3 (06:36→22:55)
--- NOTE | 2020-03-24 11:55 | Magnetic Resonance Report ---
MRI BRAIN WITHOUT CONTRAST INDICATION / CLINICAL INFORMATION: Stroke, dizziness and unsteady gait. TECHNIQUE: Multisequence, multiplanar images were obtained. COMPARISON: CT head dated 03/23/2020. 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 No evid ence for diffusion restriction, hemorrhage, mass, chronic infarct or extra-axial fluid collection. VENTRICLES: Normal in size and configuration for age. VISUALIZED ORBITS: No significant abnormality. VISUALIZED PARANASAL SINUSES: No significant abnormality. ADDITIONAL FINDINGS: Stable right parietal craniectomy changes, correlate with history. IMPRESSION: No acute intracranial abnormality is identified. Chronic and age-related changes which are stable sin ce 09/05/2018. Signer Name: Carl Amrstrong Jr, MD Signed: 03/24/2020 11:50 AM Workstation Name: [id number]
[2020-03-24] MEDS: ASPIRIN 325 MG TAB PO SCH (12:42)
--- NOTE | 2020-03-24 14:40 | Vascular Lab Report ---
"DUPLEX DOPPLER ULTRASOUND CAROTID, BILATERAL INDICATION: stroke. FINDINGS: RIGHT CAROTID: Mild to moderate atherosclerotic plaque. Right ICA peak systolic velocity: 86 cm/sec. Right Vertebral Artery: Antegrade flow. LEFT CAROTID: Mild atherosclerotic plaque. Left ICA peak systolic velocity: 84 cm/sec. Left Vertebral Artery: Antegrade flow. IMPRESSION: 1. Right Internal Carotid Artery: Less than 50% diameter stenosis. 2. Left Internal Carotid Artery: Less than 50% diameter stenosis. Velocity criteria are extrapolated from diameter data as defined by the Society of Radiologists in Research [facility] Consensus Conference, Radiology 2003; 229;340-346. Degree of Stenosis (%) || ICA PSV (cm/sec) || Plaque estimate (%) || ICA/CCA PSV Ratio Normal <125 None <2.0 <50 <125 <50 <2.0 50-69 125-230 50 2.0-4.0 70 but less than 100 >230 50 >4.0 Near occlusion High, low, or none visible variable Total occlusion None visible; no lumen N/A Signer Name: Aly Stevens MD Signed: 03/24/2020 2:36 PM Workstation Name: [id number]"
--- NOTE | 2020-03-24 19:38 | Consultation ---
History of Present Illness Consult date: 03/24/20 Reason for Consult: TIA Chief complaint: Dizziness History of present illness: 79-year-old female with known history of COPD and hypertension presenting to the emergency room via EMS today complaining of dizziness and unsteady gait. Patient indicates that dizziness started when she tried to walk and stand up. She subsequently has also had unsteady gait. Patient denies any headache and no neck pain, she denies any weakness , numbness or tingling sensation in the extremities. Patient denies any chest pain or s hortness of breath. She denies any fever or chills, no nausea vomiting and no abdominal pain. Patient denies any sick contacts and no recent travel, denies any contact with anyone with COVID-19. Initial blood pressure upon arrival of EMS was said to be due to 100s systolic and the low 100s diastolic however blood pressure improved to be 151/89 upon arrival in the emergency room. Upon arrival in the emergency room symptoms were said to have resolved. Work-up in the emergency room today CT scan of the head was unremarkable. Past History Past History Past Medical History: COPD, hypertension, hyperlipidemia Past Surgical History: hysterectomy Social history: smoking (Current daily smoker) Family history: no significant family history Medications and Allergies Allergies Allergy/AdvReac Type Severity Reaction Status Date / Time acetaminophen [From Lortab] AdvReac Swelling Verified 01/02/20 21:50 hydrocodone bitartrate AdvReac Swelling Verified 09/02/18 18:03 [From Lortab] Home Medications Medication Instructions Recorded Confirmed Last Taken Type Aspirin [Aspirin BABY CHEW TAB] 81 mg PO QDAY #30 tab.chew 09/02/18 03/03/19 09/04/18 Rx AtorvaSTATin [Lipitor] 40 mg PO QHS tablet 09/05/18 03/03/19 Unknown Rx Nicotine [Habitrol] 21 mg TD QDAY #14 patch 09/05/18 03/03/19 Unknown Rx Nicotine [Habitrol] 14 mg TD QDAY #15 patch 03/03/19 Unknown Rx Nitroglycerin [Nitrostat] 0.4 mg SL .Q5MIN PRN #10 tablet 03/03/19 Unknown Rx Pantoprazole [Protonix] 40 mg PO QDAY #30 tablet 03/03/19 Unknown Rx lisinopriL [Zestril TAB] 10 mg PO QDAY 30 Days #30 tablet 01/03/20 Unknown Rx Active Meds: Active Medications Acetaminophen (Acetaminophen 325 Mg Tab) 650 mg PO Q4H PRN PRN Reason: Pain, Mild (1-3) Aspirin (Aspirin 325 Mg Tab) 325 mg PO QDAY [facility] Last Admin: 03/24/20 12:42 Dose: 325 mg Documented by: Atorvastatin Calcium (Atorvastatin 40 Mg Tab) 40 mg PO QHS [facility] Bisacodyl (Bisacodyl 10 Mg Rect Supp) 10 mg DC QDAY PRN PRN Reason: Constipation Heparin Sodium (Porcine) (Heparin 5,000 Unit/1 Ml Vial) 5,000 unit SUB-Q Q8HR [facility] Last Admin: 03/24/20 15:00 Dose: Not Given Documented by: Magnesium Hydroxide (Magnesium Hydroxide (Mom) Oral Liqd Udc) 30 ml PO Q4H PRN PRN Reason: Constipation Metoclopramide HCl (Metoclopramide 10 Mg Tab) 10 mg PO Q6H PRN PRN Reason: Nausea And Vomiting Morphine Sulfate (Morphine 2 Mg/1 Ml Inj) 2 mg IV Q4H PRN PRN Reason: Pain, Moderate (4-6) Ondansetron HCl (Ondansetron 4 Mg/2 Ml Inj) 4 mg IV Q8H PRN PRN Reason: Nausea And Vomiting Promethazine HCl (Promethazine 25 Mg Rect Supp) 25 mg DC Q6H PRN PRN Reason: Nausea And Vomiting Sodium Chloride (Sodium Chloride 0.9% 10 Ml Flush Syringe) 10 ml IV BID [facility] Last Admin: 03/24/20 12:43 Dose: 10 ml Documented by: Sodium Chloride (Sodium Chloride 0.9% 10 Ml Flush Syringe) 10 ml IV PRN PRN PRN Reason: LINE FLUSH Physical Examination - Vital Signs Vital Signs: Vital Signs Temp Pulse Resp BP Pulse Ox 98.5 F 97 H 17 154/82 96 03/23/20 23:53 03/23/20 23:53 03/23/20 23:53 03/23/20 23:53 03/23/20 23:53 - Physical Exam Narrative exam: The patient is alert , no nystamus , finger to nose normal , gait is not tested , motor system is 5/5. Results - Laboratory Findings CBC and BMP: 03/24/20 00:21 02/08/21 00:21 Abnormal Lab Findings: Abnormal Labs 03/24/20 03/24/20 03/24/20 00:21 00:21 00:40 Hgb 14.9 H Hct 43.5 H MCV 104 H MCH 36 H [place] % (Auto) 7.9 H Seg Neutrophils % 71.7 H Sodium 135 L Creatinine 0.5 L POC Glucose Ur Specific [place] 1.002 L 03/24/20 12:34 Hgb Hct MCV MCH [place] % (Auto) Seg Neutrophils % Sodium Creatinine POC Glucose 106 H Ur Specific [place] Assessment and Plan Assesment and Plan: 1. Dizziness ( less likely Central , more Peripheral, Reviewed MRI Brain - no acute findings . 2. Continue all Current Medications . 3. Symptomatic Management for Dizziness . 4. Vestibular Rehabilitation . 5. Follow up out patient neurology is recommened . Dr. Sena
[2020-03-25 05:25] LABS: Eosinophils # (Auto) 0.1 K/mm3 (0.0-0.4); Eosinophils % (Auto) 1.2 % (0.0-4.3); Hematocrit 39.1 % (30.3-42.9); Hemoglobin 13.4 gm/dl (10.1-14.3); Lymphocytes # (Auto) 1.6 K/mm3 (1.2-5.4); Lymphocytes % (Auto) 33.2 % (13.4-35.0); Mean Corpuscular HGB Conc 34 % (30-34); Mean Corpuscular Volume 106 fl (79-97); Monocytes # (Auto) 0.5 K/mm3 (0.0-0.8); Monocytes % (Auto) 9.7 % (0.0-7.3); Platelet Count 242 K/mm3 (140-440); Red Cell Distribution Width 14.1 % (13.2-15.2)
[2020-03-25 05:34] LABS: INR 1.03 (0.87-1.13)
[2020-03-25 06:07] LABS: Blood Urea Nitrogen 12 mg/dL (7-17); Calcium 8.7 mg/dL (8.4-10.2); Chol/HDL Ratio 3.62 %; HDL Cholesterol 51 mg/dL (40-59); Hemolysis Index 6; LDL Cholesterol,Direct 137 mg/dL (50-130)
[2020-03-25 06:18] LABS: BUN/Creatinine Ratio 24
[2020-03-25] MEDS: HEPARIN 5,000 UNIT/1 ML VIAL SUB-Q SCH ×2 (06:29→14:13)
--- NOTE | 2020-03-25 06:45 | Event Note ---
Date: 03/24/20 Patient admitted for TIA in the early hours Patient to be discharged tomorrow if work-up is negative Neurology consult pending
[2020-03-25] MEDS: ASPIRIN 325 MG TAB PO SCH (09:58)
--- NOTE | 2020-03-25 12:14 | Discharge Summary ---
Providers - Providers Date of Admission: 03/24/20 01:24 Date of discharge: 03/25/20 Attending physician: CRYSTAL SINGLETARY 03/24/20 01:54 Consult to Physician [CONS] Routine Comment: Consulting Provider: BAUDILIO RAMIREZ Physician Instructions: Reason For Exam: TIA 03/24/20 01:55 Consult to Dietitian/Nutrition [CONS] Routine Physician Instructions: Reason For Exam: Reason for Consult: Nutrition Recommendations Reason for Consult: Diet education Occupational Therapy Evaluate and Treat [CONS] Routine Comment: Reason For Exam: Neuro deficits Physical Therapy Evaluation and Treat [CONS] Routine Comment: Reason For Exam: Neuro deficits Primary care physician: SLOT MANAGER Hospitalization Condition: Stable Disposition: DC/TX-06 HOME UNDER HOME HLTH Time spent for discharge: 32 min Core Measure Documentation - Palliative Care Palliative Care/ Comfort Measures: Not Applicable - Core Measures Any of the following diagnoses?: none Exam - Constitutional Vitals: Temp Pulse Resp BP Pulse Ox 97.6 F 78 18 117/65 96 03/25/20 07:37 03/25/20 07:37 03/25/20 07:37 03/25/20 07:37 03/25/20 07:37 General appearance: Present: no acute distress, well-nourished - EENT Eyes: Present: PERRL, EOM intact - Neck Neck: Present: supple, normal ROM - Respiratory Respiratory effort: normal Respiratory: bilateral: diminished, negative: rales, rhonchi, wheezing - Cardiovascular Rhythm: regular Heart Sounds: Present: S1 & S2 - Extremities Extremities: no ischemia, No edema - Abdominal General gastrointestinal: Present: soft, non-tender, non-distended, normal bowel sounds - Integumentary Integumentary: Present: clear, warm - Musculoskeletal Musculoskeletal: strength equal bilaterally, generalized weakness - Psychiatric Psychiatric: appropriate mood/affect, cooperative - Neurologic Neurologic: moves all extremities Plan Activity: advance as tolerated, fall precautions Diet: other (cardiac diet) Special Instructions: physical therapy (Home health PT) Additional Instructions: Fall precautions. If you have worsening symptoms contact MD or go to emergency room. Outpatient vestibular PT. Advised to see private neurologist in 1 week for further evaluation of her dizziness Plan of Treatment: [facility] at [facility] [phone] Follow up with: FIORELLA DARNELL MD [Primary Care Provider] - 3-5 Days CLARE ESPINAL MD [Staff Physician] - 7 Days
[2020-03-25 15:23] VITALS: BP 138/82
== END 2020-03-25 15:15 | disposition home health service (06) ==
LOC: ED 23:10 → 4A 03-24 01:24 → INTOOBSV 03-24 01:24
PROVIDERS: ADMIT Internal Medicine Geriatric Medicine; ATTEND Internal Medicine
DX: G45.9 Transient cerebral ischemic attack, unspecified (principal); J44.9 Chronic obstructive pulmonary disease, unspecified; F17.210 Nicotine dependence, cigarettes, uncomplicated; I10 Essential (primary) hypertension; E78.5 Hyperlipidemia, unspecified; E78.00 Pure hypercholesterolemia, unspecified; H81.20 Vestibular neuronitis, unspecified ear; R27.0 Ataxia, unspecified; R29.700 NIHSS score 0; Z79.82 Long term (current) use of aspirin; Z90.710 Acquired absence of both cervix and uterus
CPT/HCPCS: 36415; 70450; 70551; 80048; 80053; 80061; 81001; 82550; 82553; 82962; 84484; 85025; 85610; 85670; 85730; 93005; 93306; 93880; 96372; 97162; 97165; 99285; 99291; 99406; A9270; G0378; J1644

== ENCOUNTER 2020-09-06 18:38 | Emergency (ER) | payer MEDICARE ==
[2020-09-06] MEDS ORDERED: traMADol 50 MG TAB PO ONE (20:06)
--- NOTE | 2020-09-06 20:09 | Emergency Department Report ---
HPI - General Chief Complaint: Fall Time Seen by Provider: 09/06/20 19:54 - HPI HPI: Room 23 The patient is an 79-year-old female present with a chief complaint of pain after fall. Patient states this afternoon she was standing in the chair placing a shade over her table when she fell to the ground. Patient denies loss of consciousness but complains of pain to her right ribs and forearm. Patient has a bruise to the right face. Patient denies loss of consciousness. ED Past Medical Hx - Past Medical History Previous Medical History?: Yes Hx Hypertension: Yes Hx COPD: Yes Additional medical history: cholesterol - Surgical History Past Surgical History?: Yes Additional Surgical History: hysterectomy - Family History Family history: no significant - Social History Smoking Status: Current Every Day Smoker Substance Use Type: None - Medications Home Medications: Home Medications Medication Instructions Recorded Confirmed Last Taken Type Aspirin [Aspirin BABY CHEW TAB] 81 mg PO QDAY #30 tab.chew 03/25/20 Unknown Rx AtorvaSTATin [Lipitor] 40 mg PO QHS #30 tablet 03/25/20 Unknown Rx Nicotine [Habitrol] 14 mg TD QDAY #15 patch 03/25/20 Unknown Rx Pantoprazole [Protonix TAB] 40 mg PO QDAY #30 tablet 03/25/20 Unknown Rx ED Review of Systems ROS: Stated complaint: FALL Other details as noted in HPI Constitutional: no symptoms reported Eyes: denies: eye pain ENT: denies: throat pain Respiratory: no symptoms reported Cardiovascular: denies: chest pain Endocrine: no symptoms reported Gastrointestinal: denies: abdominal pain Genitourinary: denies: dysuria Musculoskeletal: arthralgia, myalgia Neurological: headache Physical Exam - Physical Exam Vital Signs: Vital Signs 09/06/20 18:59 Temperature 98.9 F Pulse Rate 82 Respiratory 16 Rate Blood Pressure 160/90 [Left] O2 Sat by Pulse 92 Oximetry Vital Signs 09/06/20 18:59 Temperature 98.9 F Pulse Rate 82 Respiratory 16 Rate Blood Pressure 160/90 [Left] O2 Sat by Pulse 92 Oximetry Physical Exam: GENERAL: The patient is well-developed well-nourished female lying on stretcher not appearing to be in acute distress. [] HEENT: Normocephalic. Abrasion to the right cheek. Extraocular motions are intact. Patient has moist mucous membranes. NECK: Supple. Trachea midline. No axial step-offs CHEST/LUNGS: Clear to auscultation. There is no respiratory distress noted. HEART/CARDIOVASCULAR: Regular. There is no tachycardia. There is no gallop rub or murmur. ABDOMEN: Abdomen is soft, nontender. Patient has normal bowel sounds. There is no abdominal distention. SKIN: There are skin tears to the right forearm and right velarde. There is an abrasion to the right cheek. There is no diaphoresis. NEURO: The patient is awake, alert, and oriented. The patient is cooperative. The patient has no focal neurologic deficits. The patient has normal speech. Cranial nerves II through XII grossly intact MUSCULOSKELETAL: There is no tenderness to palpation of the right or left lower extremities. There is some tenderness to palpation of the right forearm. There is no evidence of acute injury. ED Course Vital Signs 09/06/20 18:59 Temperature 98.9 F Pulse Rate 82 Respiratory 16 Rate Blood Pressure 160/90 [Left] O2 Sat by Pulse 92 Oximetry - Consultations Consultation #1: 09/06/20 22:27 Surgery paged 09/06/20 22:[address] Harmon- recommends transferring to trauma center for potential rib plating 09/06/20 22:51 Case discussed with [facility] [facility]-patient accepted in transfer to [facility] [place] by trauma attending Dr. Chicas ED Medical Decision Making - Radiology Data Radiology results: report reviewed (Right forearm x-ray, CT head, CT cervical spine, CT chest), image reviewed (Right forearm x-ray, CT head, CT cervical spine, CT chest) interpreted by me: Right forearm x-ray-no acute fracture, no dislocation [facility] [address] [place] [address] Cat Scan Report Signed Patient: JESSICA MARTINEZ MR#: [id number] : 1940 Acct:[id number] Age/Sex: 79 / F ADM Date: 09/06/20 Loc: ED Attending Dr: Ordering Physician: EDMUNDO GREEN MD Date of Service: 09/06/20 Procedure(s): CT head/brain wo con Accession Number(s): [id number] cc: EDMUNDO GREEN MD CT HEAD WITHOUT CONTRAST INDICATION: Pain after fall while standing on chair TECHNIQUE: All CT scans at this location are performed using CT dose reduction for ALARA by means of automated exposure control. COMPARISON: 03/24/2020 FINDINGS: BRAIN: No hemorrhage or mass effect are seen. No evidence of acute infarction is noted. Mild white matter microvascular changes are seen. 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 Mild atrophic changes are seen. ORBITS: Normal as visualized. SOFT TISSUES OF HEAD: Normal. CALVARIUM: Normal. VISUALIZED PARANASAL SINUSES AND MASTOID AIR CELLS: Clear. ADDITIONAL FINDINGS: None. IMPRESSION: No acute intracranial abnormality. CT CERVICAL SPINE WITHOUT CONTRAST INDICATION: Pain after fall while standing on chair TECHNIQUE: All CT scans at this location are performed using CT dose reduction for ALARA by means of automated exposure control. Axial CT images were obtained through the cervical spine. Sagittal and coronal reformatted images were produced. COM PARISON: Multiple prior head CTs Cervical spine findings: No fractures or significant subluxation are seen. At C4-5 moderate broad- based disc bulging is noted. Degenerative and arthritic changes are seen. This includes C1 to arthritic changes. In the left lateral mass of C2 11 mm lytic area is seen with questionably sclerotic borders. Small lucency in the odontoid probably is arthritic related. Additional findings: None. IMPRESSION: 1. No acute intracranial abnormalities are seen 2. No acute cervical spine abnormalities are seen 3. Lucency in the left lateral mass of C2 as above. Possibly this relates to subchondral cyst formation and arthritic change but more significant area of focal bone lysis is not excluded. Comparison with multiple prior CT head studies does not examined this area for comparison. MR may be useful. Signer Name: Chidi Harrell MD Signed: 09/06/2020 9:32 PM Workstation Name: [id number] Transcribed By: JAMIE Dictated By: Chidi Harrell MD Electronically Authenti cated By: Chidi Harrell MD Signed Date/Time: 09/06/202131 DD/ 22 TD/TT: Print Cancel [facility] [address] [place] [address] Cat Scan Report Signed Patient: JESSICA MARTINEZ MR#: [id number] : 1940 Acct:[id number] Age/Sex: 79 / F ADM Date: 09/06/20 Loc: ED Attending Dr: Ordering Physician: EDMUNDO GREEN MD Date of Service: 09/06/20 Procedure(s): CT chest wo con Accession Number(s): [id number] cc: EDMUNDO GREEN MD CT OF CHEST WITHOUT CONTRAST INDICATION: Right rib pain after fall while standing on chair CONTRAST: Without IV COMPARISON: None available. All CT scans at this location are performed using CT dose reduction for ALARA by means of automated exposure control. FINDINGS: Fractures are seen of the lateral aspects of the right fifth through 10th ribs without significant displacement except at the ninth rib where there is mild lateral displacement. Kyphoscoliosis is seen. No other fractures are identified. Visualized portions of the upper abdomen show probable hepatic cysts. No evidence of upper abdominal injury is seen. No significant axillary or chest wall soft tissue abnormalities are noted. No mediastinal or hilar masses are seen. No mediastinal hemorrhage is noted. Aorta shows ectasia but no obvious acute abnormalities. Coronary artery calcifications are seen. No pleural effusions are noted. No pneumothorax or pneumomediastinum are seen. No obvious endobronchial lesions are noted. Lung pittman are mildly blurred by motion but show only mild atelectasis and/or scarring without definite acute infiltrate. No pulmonary nodules or masses are seen. IMPRESSION: Multiple right rib fractures without obvious complication Signer Name: Chidi Harrell MD Signed: 09/06/2020 9:42 PM Workstation Name: [id number] Transcribed By: GJ Dictated By: Chidi Harrell MD Electronically Authenticated By: Chidi Harrell MD Signed Date/Time: 09/06/202141 DD/ 37 TD/TT: Print Cancel - Differential Diagnosis Close head injuries, cervical strain, ICH, forearm fracture, forearm contus Critical care attestation.: If time is entered above; I have spent that time in minutes in the direct care of this critically ill patient, excluding procedure time. ED Disposition Clinical Impression: Multiple fractures of ribs, right side, initial encounter for closed fracture, Closed head injury Disposition: DC/TX-70 ANOTHER TYPE HLTHCARE Is pt being admited?: No Does the pt Need Aspirin: No Condition: Stable Referrals: TANYA RUSHING MD [Primary Care Provider] - 3-5 Days Time of Disposition: 22:52 (Awaiting transport)
--- NOTE | 2020-09-06 21:00 | XRay Report ---
RIGHT FOREARM 2 VIEWS 2024 INDICATION: Pain after fall from standing on chair COMPARISON: None available. FINDINGS: No fractures or dislocations are seen. Arthritic changes are noted in the wrist. Signer Name: Chidi Harrell MD Signed: 09/06/2020 8:55 PM Workstation Name: [id number]
--- NOTE | 2020-09-06 21:36 | Cat Scan Report ---
CT HEAD WITHOUT CONTRAST INDICATION: Pain after fall while standing on chair TECHNIQUE: All CT scans at this location are performed using CT dose reduction for ALARA by means of automated exposure control. COMPARISON: 03/24/2020 FINDINGS: BRAIN: No hemorrhage or mass effect are seen. No evidence of acute infarction is noted. Mild white ma tter microvascular changes are seen. 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 Mild atrophic changes are seen. ORBITS: Normal as visualized. SOFT TISSUES OF HEAD: Normal. CALVARIUM: Normal. VISUALIZED PARANASAL SINUSES AND MASTOID AIR CELLS: Clear. ADDITIONAL FINDINGS: None. IMPRESSION: No acute intracranial abnormality. CT CERVICAL SPINE WITHOUT CONTRAST INDICATION: Pain after fall while standing on chair TECHNIQUE: All CT scans at this location are performed using CT dose reduction for ALARA by means of automated exposure control. Axial CT images were obtained through the cervical spine. Sagittal and co trace reformatted images were produced. COMPARISON: Multiple prior head CTs Cervical spine findings: No fractures or significant subluxation are seen. At C4-5 moderate broad-bas ed disc bulging is noted. Degenerative and arthritic changes are seen. This includes C1 to arthritic changes. In the left lateral mass of C2 11 mm lytic area is seen with questionably sclerotic borders. Small lucency in the odontoid probably is arthritic related. Additional findings: None. IMPRESSION: 1. No acute intracranial abnormalities are seen 2. No acute cervical spine abnormalities are seen 3. Lucency in the left lateral mass of C2 as above. Possibly this relates to subchondral cyst formati on and arthritic change but more significant area of focal bone lysis is not excluded. Comparison wit h multiple prior CT head studies does not examined this area for comparison. MR may be useful. Signer Name: Chidi Harrell MD Signed: 09/06/2020 9:32 PM Workstation Name: [id number]
--- NOTE | 2020-09-06 21:47 | Cat Scan Report ---
CT OF CHEST WITHOUT CONTRAST INDICATION: Right rib pain after fall while standing on chair CONTRAST: Without IV COMPARISON: None available. All CT scans at this location are performed using CT dose reduction for ALARA by means of automated e xposure control. FINDINGS: Fractures are seen of the lateral aspects of the right fifth through 10th ribs without sign ificant displacement except at the ninth rib where there is mild lateral displacement. Kyphoscoliosis is seen. No other fractures are identified. Visualized portions of the upper abdomen show probable h epatic cysts. No evidence of upper abdominal injury is seen. No significant axillary or chest wall so ft tissue abnormalities are noted. No mediastinal or hilar masses are seen. No mediastinal hemorrhage is noted. Aorta shows ectasia but no obvious acute abnormalities. Coronary artery calcifications are seen. No pleural effusions are noted. No pneumothorax or pneumomediastinum are seen. No obvious endo bronchial lesions are noted. Lung pittman are mildly blurred by motion but show only mild atelectasis and/or scarring without definite acute infiltrate. No pulmonary nodules or masses are seen. IMPRESSION: Multiple right rib fractures without obvious complication Signer Name: Chidi Harrell MD Signed: 09/06/2020 9:42 PM Workstation Name: [id number]
[2020-09-07 00:47] VITALS: BP 165/93
== END 2020-09-07 01:48 | disposition other institution (70) ==
LOC: ED 18:38
DX: S22.41XA Multiple fractures of ribs, right side, initial encounter for closed fracture (principal); S09.90XA Unspecified injury of head, initial encounter; I10 Essential (primary) hypertension; J44.9 Chronic obstructive pulmonary disease, unspecified; Z98.890 Other specified postprocedural states; F17.200 Nicotine dependence, unspecified, uncomplicated; W07.XXXA Fall from chair, initial encounter; Y93.89 Activity, other specified; Y92.89 Other specified places as the place of occurrence of the external cause; Y99.8 Other external cause status
CPT/HCPCS: 70450; 71250; 72125; 99285